=== PATIENT | female | born 1945 | race Caucasian/White ===

== ENCOUNTER → 2018-04-17 | Outpatient (CLI) | payer MEDICARE ==
--- NOTE | 2018-04-17 14:50 | BD ---
EXAMINATION TYPE: Axial Bone Density DATE OF EXAM: 04/17/2018 CLINICAL HISTORY: Postmenopausal female Height: 63 inches Weight: 140 Comparison: Prior DEXA bone scan June 12, 2013 FRAX RISK QUESTIONS: Alcohol (3 or more units per day): no Family History (Parent hip fracture): no Glucocorticoids (More than 3mos): no (Ex: prednisone, prednisolone, methylprednisolone, dexamethasone, and hydrocortisone). History of Fracture in Adulthood: yes; hip & wrist Secondary Osteoporosis: 1. Type 1 Diabetes: no 2. Hyperthyroidism: no 3. Menopause before 45: no 4. Malnutrition: no 5. Chronic liver disease: no Rheumatoid Arthritis: no Current Tobacco Use: no RISK FACTORS HISTORY OF: Hip Fracture (Right): yes When: 2002 History of Wrist Fracture: yes When: over 15 years ago Surgery to Hip(right): yes When: 2002 Family History of Osteoporosis: no Active: yes Diet low in dairy products/other sources of calcium: no Postmenopausal woman: yes Take estrogen and/or progesterone medications: not now How long: age [age] Lost more than 2 inches in height since high school: unsure, patient states may have been about 65 1/ 2 inches tall at one time Frequent falls: no Poor Health: no Hyperparathyroidism: no Adrenal Insufficiency: no MEDICATIONS: Prednisone or other steroids: no Thyroid Medications: no Osteoporosis Medications: no Additional Medications: vitamins Additional History: partial right hip replacement EXAM MEASUREMENTS: Bone mineral densitometry was performed using the [email or web address] System. Bone mineral density as measured about the Lumbar spine is: ----- L1-L4(G/cm2): 1.403 T Score Values are as follows: ----- L2: 1.6 ----- L3: 3.0 ----- L4: 2.5 ----- L1-L4: 1.9 Bone mineral density has: Increased 4.4% since study of: 06/12/2013 Bone mineral density about the L hip (g/cm2): 0.689 T Score values are as follows: -----L Neck: -2.5 -----L Total: -1.8 Bone mineral density has: Decreased -1.6% since study of: 06/12/2013 IMPRESSION: Osteopenia (T Score between -2.5 and -1) persists in the left hip. There remains slightly increased risk of fracture and the patient may be considered for treatment. Re-Screen 2-5 years. NOTE: T-SCORE=SD OF THE YOUNG ADULT MEAN.
--- NOTE | 2018-04-19 11:52 | MM ---
Reason for exam: screening (asymptomatic). Last mammogram was performed 2 years and 6 months ago. History: Patient is postmenopausal. Family history of breast cancer in 2 maternal aunts at age 67 and breast cancer in sister at age 62. Benign excisional biopsy of the left breast, December 13, 2002. Benign excisional biopsy of the left breast, December 13, 2002. Stereotactic core biopsy, December 06, 2002. Took estrogen for 3 years beginning at age 54. Physical Findings: A clinical breast exam by your physician is recommended on an annual basis and results should be correlated with mammographic findings. MG 3D Screening Mammo W/Cad Bilateral CC and MLO view(s) were taken. Prior study comparison: October 19, 2015, right breast MG 3d work up w/cad RT. October 06, 2015, bilateral MG 3d screening mammo w/cad. The breast tissue is heterogeneously dense. This may lower the sensitivity of mammography. New 6mm nodule posterior upper outer quadrant left breast warrants further evaluation. ASSESSMENT: Incomplete: need additional imaging evaluation, BI-RAD 0 RECOMMENDATION: Special view mammogram and ultrasound of the left breast. [facility] will attempt to contact patient to return for supplemental views and ultrasound.
== END | disposition home or self-care (01) ==
LOC: RADMAMWWP 13:05
PROVIDERS: ATTEND Internal Medicine
DX: Z12.31 Encounter for screening mammogram for malignant neoplasm of breast (principal); M85.852 Other specified disorders of bone density and structure, left thigh; Z78.0 Asymptomatic menopausal state; Z80.3 Family history of malignant neoplasm of breast
CPT/HCPCS: 77063; 77067; 77080

== ENCOUNTER → 2018-05-02 | Outpatient (CLI) | payer MEDICARE ==
--- NOTE | 2018-05-02 10:41 | MM ---
Reason for exam: additional evaluation requested from abnormal screening. Last mammogram was performed less than 1 month ago. History: Patient is postmenopausal. Family history of breast cancer in 2 maternal aunts at age 67 and breast cancer in sister at age 62. Benign excisional biopsy of the left breast, December 13, 2002. Benign excisional biopsy of the left breast, December 13, 2002. Stereotactic core biopsy, December 06, 2002. Took estrogen for 3 years beginning at age 54. Physical Findings: Nurse did not find any significant physical abnormalities on exam. MG 3D Work Up W/Cad LT Spot compression CC, spot compression MLO, and ML view(s) were taken of the left breast. Prior study comparison: April 17, 2018, bilateral MG 3d screening mammo w/cad. October 19, 2015, right breast MG 3d work up w/cad RT. The breast tissue is heterogeneously dense. This may lower the sensitivity of mammography. Finding: There is a persistent 9 mm circumscribed round mass located 6 cm from the nipple in the 1 o'clock upper outer quadrant, middle position of the left breast consistent with ultrasound findings. These results were verbally communicated with the patient and result sheet given to the patient on 05/02/18. ASSESSMENT: Suspicious, BI-RAD 4 RECOMMENDATION: Ultrasound core biopsy of the left breast. Called Dr. Razo with mammographic findings and has scheduled an appointment. Biopsy scheduled for 05/11/18 at 11:30. PRELIMINARY REPORT CALLED AND FAXED TO DR. RAZO ON 05/02/18.
--- NOTE | 2018-05-02 10:42 | USB ---
Reason for exam: additional evaluation requested from abnormal screening. History: Patient is postmenopausal. Family history of breast cancer in 2 maternal aunts at age 67 and breast cancer in sister at age 62. Benign excisional biopsy of the left breast, December 13, 2002. Benign excisional biopsy of the left breast, December 13, 2002. Stereotactic core biopsy, December 06, 2002. Took estrogen for 3 years beginning at age 54. US Breast Workup LT Left complete breast ultrasound includes all four quadrants, the retroareolar region and axilla. Finding demonstrates a 0.7 x 0.6 x 0.6cm hypoechoic lesion at 1 o'clock for which a biopsy is recommended, a 0.3 x 0.3 x 0.3cm cystic lesion at 3 o'clock and a 0.3 x 0.2 x 0.3cm hyperechoic lesion at the posterior nipple, area within duct, biopsy recommended. These results were verbally communicated with the patient and result sheet given to the patient on 05/02/18. ASSESSMENT: Suspicious, BI-RAD 4 RECOMMENDATION: Ultrasound core biopsy of the left breast. Called Dr. Razo with mammographic findings and has scheduled an appointment. Biopsy scheduled for 05/11/18 at 11:30. PRELIMINARY REPORT CALLED AND FAXED TO DR. RAZO ON 05/02/18.
== END | disposition home or self-care (01) ==
LOC: RADMAMWWP 08:21
PROVIDERS: ATTEND Internal Medicine
DX: R92.8 Other abnormal and inconclusive findings on diagnostic imaging of breast (principal)
CPT/HCPCS: 77065; 76641; G0279; 77061

== ENCOUNTER → 2018-05-08 | Day surgery (SDC) | payer MEDICARE ==
[2018-05-08 11:40] VITALS: PULSE 66; RESP 15; TEMP 98.8; BMI 24.0
--- NOTE | 2018-05-08 16:25 | USB ---
EXAMINATION TYPE: US biopsy breast VAD LT, US biopsy breast add'l VAD LT MG diagnostic mammo LT wo CAD DATE OF EXAM: 05/08/2018 CLINICAL HISTORY: 72-year-old female R92.8 Previous Abnormal Mammogram. TECHNIQUE: Ultrasound guided core biopsy of the left breast, 2 sites COMPARISON: 05/02/2018, 05/08/2018 FINDINGS: The procedure of ultrasound guided core biopsy was explained to the patient. Benefits, alternatives, and risks were discussed. An informed consent was then obtained. The patient was placed in supine positioning for imaging and for the procedure. The overlying skin was prepped and draped in usual sterile fashion. Lidocaine buffered with bicarbonate was used as anesthetic into the skin and subcutaneous tissue up to each area of concern in the left breast, in turn. SITE A: 1:00 solid mass - Under ultrasound guidance, a 13-gauge vacuum assisted Mammotome Elite biopsy gun device was used to obtain 7 core samples. Following this, a wing clip was left in lesion. SITE B: subtle subareolar lesion - Under ultrasound guidance, a 13-gauge vacuum assisted Mammotome Elite biopsy gun device was used to obtain 6 core samples. The lesion was largely obscured following placement of the biopsy needle. The site was extensively sampled. Following this, a coil clip was left in lesion. The patient tolerated the procedure well without any immediate complication. The patient was kept in the radiology department for short stay after the procedure and then discharged home in stable condition. Postbiopsy mammogram shows wing clip at the site of mammographic mass. Coil clip is present in the subareolar region. IMPRESSION: Successful, uncomplicated ultrasound guided two site core biopsy of the left breast, the 1:00 (SITE A) lesion being very suspicious. The subareolar lesion is equivocal between an intraductal lesion versus breast tissue interposed between branching ducts. Full pathology results to follow. Pathology Results: Malignant A. 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 See Surgical Pathology Cancer Case Summary. B. BREAST, LEFT, SITE B POST NIPPLE, CORE BIOPSY: Fibroadenoma/ fibroadenomatoid hyperplasia with stromal hyalinization and background fibrocystic changes with rare microcalcifications. Recommendation Surgical consult of the left breast. Site A: 1 o'clock, surgical consult. Site B: posterior nipple, benign, appropriate follow up post surgical intervention. MTDD
[2018-05-08 17:56] VITALS: BP 134/78
== END | disposition home or self-care (01) ==
LOC: RADUSWWP 11:17
PROVIDERS: ATTEND Internal Medicine
DX: C50.912 Malignant neoplasm of unspecified site of left female breast (principal); D24.2 Benign neoplasm of left breast; R92.8 Other abnormal and inconclusive findings on diagnostic imaging of breast
CPT/HCPCS: 88305; 77065; 19083; 19084; A4648; J2001

== ENCOUNTER → 2018-06-08 | Day surgery (SDC) | payer MEDICARE ==
[2018-06-01 15:55] VITALS: BMI 24.0
[~2018-06-08] MED LIST: ALPRAZolam 0.25 MG TAB PO ONE; DEXAMETHASONE SOD PHOSPHATE 10 MG/ML 1 ML VIAL IV ONE; HEPARIN SODIUM,PORCINE 5,000 UNIT/ML 1 ML VIAL SQ ONE; KETOROLAC 30 MG/ML 1 ML VIAL ONE; LACTATED RINGERS 1,000 ML IV ONE; LACTATED RINGERS 1,000 ML IV SCH; LIDOCAINE 1% 20 ML VIAL (10MG/ML) FOR IV START INTRADERMA ONE; LIDOCAINE 1% INJ 10MG/ML (20 ML MDV) ONE; LIDOCAINE 1% INJ 10MG/ML (20 ML MDV) SQ ONE; MIDAZOLAM 2 MG/2 ML VIAL IV PRN; MIDAZOLAM 2 MG/2 ML VIAL ONE; NALOXONE 0.4 MG/ML 1 ML VIAL IV PRN; ONDANSETRON 4 MG/2 ML VIAL IVP ONE; PROPOFOL 10 MG/ML 20 ML VIAL IV ONE; Pre Op ABX Message 1 EACH MISC MISCELLANE ONE; SODIUM BICARB 4% 5 ML VIAL (0.48 MEQ/ML) MISCELLANE ONE; fentaNYL (PF) 50 MCG/ML 2 ML AMP IV PRN; fentaNYL (PF) 50 MCG/ML 2 ML AMP ONE; traMADol 50 MG TAB PO ONE; traMADol 50 MG TAB PO PRN
--- NOTE | 2018-06-08 09:46 | NM ---
EXAMINATION TYPE: NM sentinel node injection DATE OF EXAM: 06/08/2018 COMPARISON: 05/08/2018 HISTORY: 72 year-old female with biopsy-proven left breast cancer TECHNIQUE AND FINDINGS: The procedure of sentinel lymph node injection was explained to the patient. The benefits, alternatives, and risks were discussed. An informed consent was then obtained. Overlying skin is cleaned with sterile alcohol. 517 uCi technetium 99m Tilmanocept was injected at a single site, upper outer margin of the left nipple intradermally. The patient tolerated the procedure well without any immediate complication. The patient was kept in the radiology department for short stay after the procedure and then taken to surgery for surgical p rocedure what is presumed intraoperative gamma probe will be used for sentinel lymph node detection. IMPRESSION: Left breast radiotracer injection for sentinel node localization as above.
[2018-06-08 10:56] VITALS: TEMP 96.8
--- NOTE | 2018-06-08 11:07 | P.OP ---
Date of Procedure: 06/08/18 Procedure(s) Performed: PREOPERATIVE DIAGNOSIS: Left breast cancer POSTOPERATIVE DIAGNOSIS: Same PROCEDURE: Left Breast wire localization lumpectomy with sentinel lymph node biopsy SURGEON: Hossein EBL: Minimal ANESTHESIA: General COMPLICATIONS: None OPERATIVE PROCEDURE: Patient was placed on the operating room table in the supine position. 2 mL of methylene blue was injected into the subareolar space. The breast was then massaged for 5 minutes. The left breast was then prepped and draped in usual sterile fashion. The left axilla was addressed at that time. The hot spot in the left axilla was identified. A small curvilinear incision was made using the scalpel. Dissection down through the subcutaneous tissues took place using electrocautery. Using the neoprobe I identified a total of 3 sentinel lymph nodes. These were all removed and sent to pathology for close examination. Frozen sections from these lymph nodes were negative for metastatic disease. No bleeding was seen. The subcutaneous tissues were closed using 3-0 Vicryl sutures. The skin was closed using 4-0 Monocryl sutures. The wire entrance site was then addressed. This was present at the 3:00 location. A curvilinear incision was made adjacent to the wire entrance site. I followed the wire down into the breast tissue. An adequate lumpectomy specimen then took place around the wire. Margins of 1.5-2 cm worth attempted to be achieved. The initial lumpectomy specimen was then painted using the appropriate color. The clip assembler small products was used to linda the lumpectomy site circumferentially. The clip was confirmed to be within the lumpectomy specimen by radiology. The subcutaneous tissues were closed using 3-0 Vicryl sutures. The skin was closed using a running 4-0 Monocryl stitch. Steri- Strips and sterile dressings were applied. DISPOSITION: Stable to recovery room
[2018-06-08 12:08] VITALS: RESP 18
[2018-06-08 12:59] VITALS: BP 135/87; PULSE 75
--- NOTE | 2018-06-08 14:51 | MM ---
EXAMINATION TYPE: MG pre op needle loc LT, MG surgical specimen LT DATE OF EXAM: 06/08/2018 COMPARISON: 05/02/2018 CLINICAL HISTORY: 72 year-old female with biopsy-proven left breast cancer TECHNIQUE: Needle localization with wire placement and surgical excision of area of concern in the le ft breast. FINDINGS: The procedure of needle localization with wire placement and than surgical excision was exp lained to the patient. Benefits, alternatives, and risks were discussed. An informed consent was th en obtained. The shortest pathway for procedure was chosen. Shortest pathway was a lateral approach. The overlyin g skin was prepped and draped in usual sterile fashion. Lidocaine buffered with bicarbonate was used as anesthetic into the skin and subcutaneous tissue up to the level of area of concern. A 7 cm need le was used. It was placed via a lateral approach under mammographic guidance. Subsequent 90 degree s mammogram show the needle to be in satisfactory position relative to the targeted area. At this po int, wire was placed and the needle was withdrawn. The wire was fixed to patient's skin. Images wer e marked for surgeon. The patient tolerated the procedure well without any immediate complication. The patient was kept in the radiology department for short stay after the procedure and then taken to surgery for surgical e xcision. The biopsy clip with associated mass and wire are identified in specimen mammogram. The patient was kept in hospital for short stay after the procedure and then discharged home in stabl e condition. IMPRESSION: Successful, uncomplicated needle localization with wire placement and surgical excision of biopsy-pro paulina left breast cancer; full pathology results to follow.
== END ==
LOC: OR 06:12
PROVIDERS: ATTEND Surgery
DX: C50.412 Malignant neoplasm of upper-outer quadrant of left female breast (principal); N62 Hypertrophy of breast; Z17.0 Estrogen receptor positive status [ER+]; Z80.3 Family history of malignant neoplasm of breast; Z79.899 Other long term (current) drug therapy; Z96.649 Presence of unspecified artificial hip joint
CPT/HCPCS: 76098; 19281; 38792; 19301; 38525; A9520; J2250; J1644; J1100; J2405; J2001; J3010; J1885; J2704; 88307; 88331; 88341; 88342

== ENCOUNTER → 2019-03-05 | Outpatient (CLI) | payer MEDICARE ==
[2019-03-05 13:45] VITALS: BP 144/90; PULSE 81; RESP 18; TEMP 98.7; BMI 23.1
--- NOTE | 2019-03-05 14:51 | P.HPOB ---
History of Present Illness H&P Date: 03/05/19 Chief Complaint: The patient is here for her routine gynecologic exam. This is a 73-year-old with an LMP of 1994. The patient is here to establish with this office. She states it has been about 4 years since her last pelvic exam. She denies any postmenopausal bleeding. She has noticed very small reddish spots on the labia near the vaginal opening these of been there for more than 5 years. She is otherwise without complaints. Review of Systems Weight has been stable. She denies respiratory, cardiac and G.I. problems. She denies maltreatment or problems with falling. : she denies any significant problems with urinary leakage, but occasionally has to go to the bathroom right away. Past Medical History Past Medical History: Cancer Additional Past Medical History / Comment(s): LT BREAST CA status post lumpectomy and radiation treatment in 2018. 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 PAST [employer] HISTORY: She has no history of STDs. History of Any Multi-Drug Resistant Organisms: None Reported Past Surgical History: Breast Surgery, Joint Replacement, Tonsillectomy Additional Past Surgical History / Comment(s): Partial RT Hip Replacement 2002. Left breast biopsy and lumpectomy 2017. Cataract surgery. COLONOSCOPY 2011. Uterine myomectomy. Past Anesthesia/Blood Transfusion Reactions: No Reported Reaction Past Psychological History: Anxiety, Depression Additional Psychological History / Comment(s): Takes Xanax 0.25 prn Smoking Status: Never smoker Past Alcohol Use History: Occasional (0-6 per month) Past Drug Use History: None Reported Additional History: She has been since 1962 and is infrequently sexually active. 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 - Past Family History Sister(s) Family Medical History: Cancer Additional Family Medical History / Comment(s): BREAST CA. Father Family Medical History: Cancer Additional Family Medical History / Comment(s): Throat cancer. Mother Additional Family Medical History / Comment(s): Heart valve replacement. 2 maternal aunts had breast cancer. Medications and Allergies Home Medications Medication Instructions Recorded Confirmed Type ALPRAZolam [Xanax] 0.125 mg PO BID PRN 05/04/18 03/05/19 History Cholecalciferol (Vitamin D3) 2,000 unit PO DAILY 05/04/18 03/05/19 History [Vitamin D3] Cyanocobalamin (Vitamin B-12) 1,000 mcg PO DAILY 05/04/18 03/05/19 History [Vitamin B-12] Docusate [Colace] 100 mg PO DAILY 05/04/18 03/05/19 History Multivit-Min/Iron/Folic/Lutein 1 each PO DAILY 05/04/18 03/05/19 History [Centrum Silver Women Tablet] Letrozole [Femara] 2.5 mg PO DAILY 03/05/19 03/05/19 History Allergies Allergy/AdvReac Type Severity Reaction Status Date / Time No Known Allergies Allergy Verified 03/05/19 13:48 Exam Vital Signs Temp Pulse Resp BP Pulse Ox 03/05/19 13:37 98.7 F 81 18 144/90 97 Intake and Output 03/04/19 03/05/19 03/05/19 22:59 06:59 14:59 Other: Weight 63.049 kg Height 5'5", weight 139 pounds, BMI 23.1. This is a well-developed well-nourished white female who is alert and oriented times 3 in no acute distress. HEENT: Within normal limits. NECK: Supple without mass or thyromegaly. CHEST AND LUNGS: Clear to auscultation. HEART: Regular rate and rhythm. BREASTS: Are without mass or discharge. There is a small dimpled area at the 1 o'clock position of the left breast consistent with her previous lumpectomy. AXILLARY EXAM: Negative for adenopathy. BACK: Negative for CVA tenderness. ABDOMEN: Soft, nontender, without palpable masses. PELVIC EXAM: Normal external genitalia with moderate atrophy. There are several small benign appearing 1 mm reddish capillary spots bilaterally. Cervix and vagina appear normal with moderate atrophy. There is no unusual discharge. There is no evidence of prolapse. The uterus is midposition, nongravid size and nontender. There are no palpable adnexal masses or tenderness. RECTAL EXAM: rectovaginal exam is negative for mass or tenderness and is negative for occult blood. EXTREMITIES: Nontender. IMPRESSION: 1. 73-year-old menopausal female with benign gynecologic exam. 2. The small benign appearing capillary spots on the vulva have been there for many years and are very benign in appearance. 3. History of left breast cancer with no evidence of recurrence. 4. 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 PLAN: 1. Pap smear was performed. I will try to obtain records of her previous Pap smears. If she has been adequately screened and no history of significant dysplasia, we will consider discontinuing Pap smears because of her low risk nature. 2. Self breast awareness was discussed with the patient. 3. Mammograms will be done through her surgeon and oncologists. She is scheduled for one in April of this year. 4. Osteoporosis handout was given to the patient. I have stressed the importan ce of adequate calcium, vitamin D and regular exercise. Recommended amounts of calcium and vitamin D were also discussed. Her last bone density test was done on 04/17/2018 and showed osteopenia. Will plan on repeating this in approximately 2 years 5. She does receive flu shots in the fall. 6. We have discussed the benign appearing spots on the vulva. I've tried to reassure her that nothing further needs to be done unless she is noticing changes. 7. She will return in one to 2 years for her routine well woman exams.
== END | disposition home or self-care (01) ==
LOC: WWCWWP 13:17
PROVIDERS: ATTEND Obstetrics & Gynecology
DX: Z53.9 Procedure and treatment not carried out, unspecified reason (principal)

== ENCOUNTER → 2019-04-22 | Outpatient (CLI) | payer MEDICARE ==
--- NOTE | 2019-04-22 12:11 | MM ---
Reason for exam: additional evaluation requested from prior study. Last mammogram was performed 11 months ago. History: Patient is postmenopausal and has history of breast cancer at age 72. Family history of breast cancer in 2 maternal aunts at age 67 and breast cancer in sister at age 62. Malignant MG pre op needle loc LT of the left breast, June 08, 2018. Lumpectomy of the left breast, June 08, 2018. Malignant US biopsy breast VAD LT of the left breast, May 08, 2018. Malignant US biopsy breast add'l VAD LT of the left breast, May 08, 2018. Radiation therapy of the left breast, 2018. Benign excisional biopsy of the left breast, December 13, 2002. Benign excisional biopsy of the left breast, December 13, 2002. Stereotactic core biopsy, December 06, 2002. Took estrogen for 3 years beginning at age 54. Physical Findings: Nurse did not find any significant physical abnormalities on exam. MG 3D Diag Mammo W/Cad HEYDI Bilateral CC and MLO view(s) were taken. Prior study comparison: May 08, 2018, left breast MG diagnostic mammo LT wo CAD. May 02, 2018, left breast MG 3d work up w/cad LT. The breast tissue is heterogeneously dense. This may lower the sensitivity of mammography. Post surgical change in the left breast. Benign appearing calcifications in the left breast. There is skin thickening on left. These results were verbally communicated with the patient and result sheet given to the patient on 04/22/19. ASSESSMENT: Benign, BI-RAD 2 RECOMMENDATION: Follow-up diagnostic mammogram of both breasts in 1 year.
== END | disposition home or self-care (01) ==
LOC: RADMAMWWP 11:03
PROVIDERS: ATTEND Surgery
DX: R92.8 Other abnormal and inconclusive findings on diagnostic imaging of breast (principal)
CPT/HCPCS: 77066; G0279; 77062

== ENCOUNTER → 2020-06-08 | Outpatient (CLI) | payer MEDICARE ==
--- NOTE | 2020-06-08 14:18 | MM ---
Reason for exam: additional evaluation requested from prior study. Last mammogram was performed 1 year and 2 months ago. History: Patient is postmenopausal and has history of breast cancer at age 72. Family history of breast cancer in 2 maternal aunts at age 67 and breast cancer in sister at age 62. Malignant MG pre op needle loc LT of the left breast, June 08, 2018. Lumpectomy of the left breast, June 08, 2018. Malignant US biopsy breast VAD LT of the left breast, May 08, 2018. Malignant US biopsy breast add'l VAD LT of the left breast, May 08, 2018. Radiation therapy of the left breast, 2018. Benign excisional biopsy of the left breast, December 13, 2002. Benign excisional biopsy of the left breast, December 13, 2002. Stereotactic core biopsy, December 06, 2002. Took estrogen for 3 years beginning at age 54. Taking antineoplastic beginning at age 72. Physical Findings: Nurse did not find any significant physical abnormalities on exam. MG 3D Diag Mammo W/Cad HEYDI Bilateral CC and MLO view(s) were taken. Prior study comparison: April 22, 2019, bilateral MG 3d diag mammo w/cad HEYDI. May 08, 2018, left breast MG diagnostic mammo LT wo CAD. The breast tissue is heterogeneously dense. This may lower the sensitivity of mammography. Post surgical changes left breast. No significant new findings when compared with previous films. These results were verbally communicated with the patient and result sheet given to the patient on 06/08/20. ASSESSMENT: Benign, BI-RAD 2 RECOMMENDATION: Follow-up diagnostic mammogram of both breasts in 1 year.
--- NOTE | 2020-06-08 17:07 | BD ---
EXAMINATION TYPE: Axial Bone Density DATE OF EXAM: 06/08/2020 COMPARISON: NONE CLINICAL HISTORY: Height: 63.5 Weight: 138.3 FRAX RISK QUESTIONS: Alcohol (3 or more units per day): no Family History (Parent hip fracture): no Glucocorticoids (More than 3mos): no (Ex: prednisone, prednisolone, methylprednisolone, dexamethasone, and hydrocortisone). History of Fracture in Adulthood: yes Secondary Osteoporosis: 1. Type 1 Diabetes: no 2. Hyperthyroidism: no 3. Menopause before 45: no 4. Malnutrition: no 5. Chronic liver disease: no Rheumatoid Arthritis: no Current Tobacco Use: no RISK FACTORS HISTORY OF: Hip Fracture (Right/Left): right When: 2002 Surgery to Spine/Hip(right/left)/Wrist (right/left): right hip When: 2002 Family History of Osteoporosis: no Active: yes Diet low in dairy products/other sources of calcium: no Postmenopausal woman: age 53 Lost more than 2 inches in height since high school: yes MEDICATIONS: letrozole Additional History: EXAM MEASUREMENTS: Bone mineral densitometry was performed using the [employer]. Bone mineral density as measured about the Lumbar spine is: ----- L1-L4(G/cm2): 1.418 T Score Values are as follows: ----- L2: 2.3 ----- L3: 2.3 ----- L4: 2.1 ----- L1-L4: 2.0 Bone mineral density has: decreased -0.7 % since study of: 04.17.2018 Bone mineral density about the L hip (g/cm2): 0.771 T Score values are as follows: -----L Neck: -2.6 -----L Total: -1.9 Bone mineral density has: decreased -0.9 % since study of: 04.17.2018 IMPRESSION: Osteoporosis (T Score less than -2.5). There is increased fracture risk and therapy is usually indicated based on age. Re-Screen 1-2 years. NOTE: T-SCORE=SD OF THE YOUNG ADULT MEAN.
== END | disposition home or self-care (01) ==
LOC: RADMAMWWP 13:38
PROVIDERS: ATTEND Internal Medicine Hematology & Oncology
DX: Z08 Encounter for follow-up examination after completed treatment for malignant neoplasm (principal); Z85.3 Personal history of malignant neoplasm of breast; M89.9 Disorder of bone, unspecified; N95.1 Menopausal and female climacteric states; M81.0 Age-related osteoporosis without current pathological fracture
CPT/HCPCS: 77080; 77066; G0279; 77062

== ENCOUNTER → 2021-04-29 | Outpatient (CLI) | payer MEDICARE ==
--- NOTE | 2021-04-29 12:39 | XR ---
EXAMINATION TYPE: XR lumbar spine 2 or 3V DATE OF EXAM: 04/29/2021 CLINICAL HISTORY: Back pain TECHNIQUE: 3 views of the lumbar spine are obtained. COMPARISON: None FINDINGS: Vertebral body heights are preserved. There is accentuation of the normal lumbar lordosis. There is mild retrolisthesis of T12 on L1 and L1 on L2 and L2 on L3. Multilevel endplate sclerosis an d osteophytosis is noted with facet arthropathy. Vascular calcifications are seen. 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
== END | disposition home or self-care (01) ==
LOC: RADXRMAIN 10:06
PROVIDERS: ATTEND Internal Medicine
DX: M51.86 Other intervertebral disc disorders, lumbar region (principal); M47.816 Spondylosis without myelopathy or radiculopathy, lumbar region
CPT/HCPCS: 72100

== ENCOUNTER → 2021-06-25 | Outpatient (CLI) | payer MEDICARE ==
--- NOTE | 2021-06-28 08:41 | MM ---
Reason for exam: additional evaluation requested from prior study. Last mammogram was performed 1 year and 1 month ago. History: Patient is postmenopausal and has history of breast cancer at age 72. Family history of breast cancer in 2 maternal aunts at age 67 and breast cancer in sister at age 62. Malignant MG pre op needle loc LT of the left breast, June 08, 2018. Lumpectomy of the left breast, June 08, 2018. Malignant US biopsy breast VAD LT of the left breast, May 08, 2018. Malignant US biopsy breast add'l VAD LT of the left breast, May 08, 2018. Radiation therapy of the left breast, 2018. Benign excisional biopsy of the left breast, December 13, 2002. Benign excisional biopsy of the left breast, December 13, 2002. Stereotactic core biopsy, December 06, 2002. Took estrogen for 3 years beginning at age 54. Taking antineoplastic for 3 years beginning at age 72. Physical Findings: Nurse did not find any significant physical abnormalities on exam. MG 3D Diag Mammo W/Cad HEYDI Bilateral CC and MLO view(s) were taken. Prior study comparison: June 08, 2020, bilateral MG 3d diag mammo w/cad HEYDI. April 22, 2019, bilateral MG 3d diag mammo w/cad HEYDI. The breast tissue is heterogeneously dense. This may lower the sensitivity of mammography. Benign appearing bilateral calcifications. Previous mammotome biopsy in the left breast. Post operative changes. These results were verbally communicated with the patient and result sheet given to the patient on 06/25/21. ASSESSMENT: Benign, BI-RAD 2 RECOMMENDATION: Follow-up diagnostic mammogram of both breasts in 1 year.
== END | disposition home or self-care (01) ==
LOC: RADMAMWWP 14:47
PROVIDERS: ATTEND Internal Medicine Hematology & Oncology
DX: R92.8 Other abnormal and inconclusive findings on diagnostic imaging of breast (principal); Z85.3 Personal history of malignant neoplasm of breast
CPT/HCPCS: 77066; G0279; 77062

== ENCOUNTER 2021-07-06 18:22 | Inpatient (IN) | payer MEDICARE ==
--- NOTE | 2021-07-06 18:26 | ED ---
General Adult HPI - General Stated complaint: Fall, LT hip pain Time Seen by Provider: 07/06/21 18:22 Source: patient, EMS, RN notes reviewed, old records reviewed - History of Present Illness Initial comments: This is a 75-year-old female who states she was walking down a couple steps and she missed one step and fell and hurt her left hip. Patient states she was unable to get up when EMS arrived they stated her leg was shortened and externally rotated. Patient denies hitting her head or neck. Patient denies any upper extremity pain. Patient denies any right lower extremity pain. Patient denies any chest pain back pain or abdominal pain. Patient has no other complaints besides the left hip pain. Patient denies any blood thinners. Patient received a total of [address] the [address] in - Related Data Home Medications Medication Instructions Recorded Confirmed ALPRAZolam [Xanax] 0.125 mg PO BID PRN 05/04/18 03/05/19 Cholecalciferol (Vitamin D3) 2,000 unit PO DAILY 05/04/18 03/05/19 [Vitamin D3] Cyanocobalamin (Vitamin B-12) 1,000 mcg PO DAILY 05/04/18 03/05/19 [Vitamin B-12] Docusate [Colace] 100 mg PO DAILY 05/04/18 03/05/19 Multivit-Min/Iron/Folic/Lutein 1 each PO DAILY 05/04/18 03/05/19 [Centrum Silver Women Tablet] Letrozole [Femara] 2.5 mg PO DAILY 03/05/19 03/05/19 Allergies Allergy/AdvReac Type Severity Reaction Status Date / Time No Known Allergies Allergy Verified 07/06/21 18:29 Review of Systems ROS Statement: Those systems with pertinent positive or pertinent negative responses have been documented in the HPI. ROS Other: All systems not noted in ROS Statement are negative. Past Medical History Past Medical History: Cancer Additional Past Medical History / Comment(s): LT BREAST CA status post lumpectomy and radiation treatment in 2018. 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 History of Any Multi-Drug Resistant Organisms: None Reported Past Surgical History: Breast Surgery, Joint Replacement, Tonsillectomy Additional Past Surgical History / Comment(s): Partial RT Hip Replacement 2002. Left breast biopsy and lumpectomy 2018. Cataract surgery. COLONOSCOPY 2012. Uterine myomectomy. Past Anesthesia/Blood Transfusion Reactions: No Reported Reaction Past Psychological History: Anxiety, Depression Additional Psychological History / Comment(s): Takes Xanax 0.25 prn Past Alcohol Use History: Occasional (0-6 per month) Past Drug Use History: None Reported - Past Family History Sister(s) Family Medical History: Cancer Additional Family Medical History / Comment(s): BREAST CA. Father Family Medical History: Cancer Additional Family Medical History / Comment(s): Throat cancer. Mother Additional Family Medical History / Comment(s): Heart valve replacement. 2 maternal aunts had breast cancer. General Exam - General Exam Comments Initial Comments: GENERAL: Patient is well-developed and well-nourished. Patient is nontoxic and well- hydrated and is in mild distress. ENT: Neck is soft and supple. No significant lymphadenopathy is noted. Oropharynx is clear. Moist mucous membranes. Neck has full range of motion without eliciting any pain. There is no thyroid enlargement and no masses were felt. EYES: The sclera were anicteric and conjunctiva were pink and moist. Extraocular movements were intact and pupils were equal round and reactive to light. Eyelids were unremarkable. PULMONARY: Unlabored respirations. Good breath sounds bilaterally. No audible rales rhonc hi or wheezing was noted. CARDIOVASCULAR: There is a regular rate and rhythm without any murmurs gallops or rubs. ABDOMEN: Soft and nontender with normal bowel sounds. SKIN: Skin is clear with no lesions or rashes and otherwise unremarkable. NEUROLOGIC: Patient is alert and oriented x3. Cranial nerves II through XII are grossly intact. Motor and sensory are also intact. Normal speech, volume and content. Symmetrical smile. MUSCULOSKELETAL: Patient has significant pain in the lateral aspect of her left hip. Patient's leg is shortened and externally rotated. LYMPHATICS: No significant lymphadenopathy is noted PSYCHIATRIC: Normal psychiatric evaluation. Course Vital Signs 07/06/21 18:23 Temperature 99.2 F Pulse Rate 86 Respiratory 18 Rate Blood Pressure 168/90 O2 Sat by Pulse 96 Oximetry Medical Decision Making - Medical Decision Making EKG shows normal sinus rhythm at [address] interval 170 QRS is 98 QT interval 390 QTC is 460. Patient's EKG shows no ST segment elevation or depression. X-ray of the hip shows a subcapital impacted femoral neck fracture on the left. I spoke to Dr. Cortez who agreed to admit the patient admitted the patient wrote a minute orders. - Lab Data Result diagrams: 07/06/21 18:36 07/06/21 18:36 Lab Results 07/06/21 07/06/21 07/06/21 Range/Units 18:36 18:36 18:36 WBC 6.4 (3.8-10.6) k/uL RBC 4.44 (3.80-5.40) m/uL Hgb 13.8 (11.4-16.0) gm/dL Hct 41.7 (34.0-46.0) % MCV 93.8 (80.0-100.0) fL MCH 31.0 (25.0-35.0) pg MCHC 33.1 (31.0-37.0) g/dL RDW 12.0 (11.5-15.5) % Plt Count 218 (150-450) k/uL MPV 7.1 Neutrophils % 56 % Lymphocytes % 33 % Monocytes % 6 % Eosinophils % 3 % Basophils % 0 % Neutrophils # 3.6 (1.3-7.7) k/uL Lymphocytes # 2.1 (1.0-4.8) k/uL Monocytes # 0.4 (0-1.0) k/uL Eosinophils # 0.2 (0-0.7) k/uL Basophils # 0.0 (0-0.2) k/uL PT 9.8 (9.0-12.0) sec INR 0.9 (<1.2) APTT 20.2 L (22.0-30.0) sec Sodium 138 (137-145) mmol/L Potassium 4.1 (3.5-5.1) mmol/L Chloride 108 H (98-107) mmol/L Carbon Dioxide 25 (22-30) mmol/L Anion Gap 5 mmol/L BUN 16 (7-17) mg/dL Creatinine 0.63 (0.52-1.04) mg/dL Est GFR (CKD-EPI)AfAm >90 (>60 ml/min/1.73 sqM) Est GFR (CKD-EPI)NonAf 87 (>60 ml/min/1.73 sqM) Glucose 112 H (74-99) mg/dL Calcium 9.2 (8.4-10.2) mg/dL Total Bilirubin 0.3 (0.2-1.3) mg/dL AST 27 (14-36) U/L ALT 8 (4-34) U/L Alkaline Phosphatase 74 (38-126) U/L Total Protein 6.1 L (6.3-8.2) g/dL Albumin 3.8 (3.5-5.0) g/dL Disposition Clinical Impression: Subcapital fracture of left femur Disposition: ADMITTED IP TO THIS [facility] Referrals: Darwin Mcdonald MD [Primary Care Provider] - 1-2 days Time of Disposition: 19:19
[2021-07-06 18:43] LABS: Basophils % (A) 0 %; Eosinophils # (A) 0.2 k/uL (0-0.7); Eosinophils % (A) 3 %; HCT 41.7 % (34.0-46.0); HGB 13.8 gm/dL (11.4-16.0); Lymphocytes # (A) 2.1 k/uL (1.0-4.8); Lymphocytes % (A) 33 %; MCHC 33.1 g/dL (31.0-37.0); MCV 93.8 fL (80.0-100.0); Mean Platelet Volume 7.1; Monocytes # (A) 0.4 k/uL (0-1.0); Monocytes % (A) 6 %; Neutrophils # (A) 3.6 k/uL (1.3-7.7); Neutrophils % (A) 56 %; Platelet Count 218 k/uL (150-450); RBC 4.44 m/uL (3.80-5.40); WBC 6.4 k/uL (3.8-10.6)
[2021-07-06 18:58] LABS: INR 0.9 (<1.2); Partial Thromboplastin Time 20.2 sec (22.0-30.0); Prothrombin Time 9.8 sec (9.0-12.0)
[2021-07-06 19:02] LABS: ALT 8 U/L (4-34); AST 27 U/L (14-36); African American GFR (CKD) >90 (>60 ml/min/1.73 sqM); Albumin 3.8 g/dL (3.5-5.0); Alkaline Phosphatase 74 U/L (38-126); Anion Gap 5 mmol/L; Blood Urea Nitrogen 16 mg/dL (7-17); Calcium 9.2 mg/dL (8.4-10.2); Carbon Dioxide 25 mmol/L (22-30); Chloride 108 mmol/L (98-107); Glucose 112 mg/dL (74-99); Non-African American GFR(CKD) 87 (>60 ml/min/1.73 sqM); Potassium 4.1 mmol/L (3.5-5.1); Sodium 138 mmol/L (137-145); Total Bilirubin 0.3 mg/dL (0.2-1.3); Total Protein 6.1 g/dL (6.3-8.2)
--- NOTE | 2021-07-06 19:13 | XR ---
EXAMINATION TYPE: XR chest 1V DATE OF EXAM: 07/06/2021 COMPARISON: NONE HISTORY: There is only breathing TECHNIQUE: Single view FINDINGS: Heart and mediastinum are normal. Lungs are clear. Diaphragm is normal. Bony thorax is inta ct. IMPRESSION: No active cardiopulmonary disease. Normal heart.
--- NOTE | 2021-07-06 19:14 | XR ---
EXAMINATION TYPE: XR Hip LT and AP Pelvis DATE OF EXAM: 07/06/2021 COMPARISON: NONE HISTORY: Fall. Pain TECHNIQUE: 3 views FINDINGS: There is impacted subcapital fracture left femur. There is no dislocation. There is 2.5 cm of displacement. Pelvic ring is intact. There is right hip prosthesis. IMPRESSION: Acute impacted subcapital fracture left femur.
--- NOTE | 2021-07-06 19:15 | XR ---
EXAMINATION TYPE: XR femur LT DATE OF EXAM: 07/06/2021 COMPARISON: NONE HISTORY: Fall. Pain TECHNIQUE: 4 views FINDINGS: There is an acute impacted subcapital fracture left femur. The distal femur is intact. Knee joint is intact. IMPRESSION: Acute subcapital impacted left femoral neck fracture.
[2021-07-06] MEDS ORDERED: SODIUM CHLORIDE 0.9% 1,000 ML IV ONE (19:19)
[2021-07-06] MEDS: HYDROmorphone 0.5 MG/0.5 ML SYRINGE IVP PRN (21:38)
[2021-07-07] MEDS: HYDROmorphone 0.5 MG/0.5 ML SYRINGE IVP PRN (05:31)
--- NOTE | 2021-07-07 08:46 | P.HPOR ---
History of Present Illness H&P Date: 07/07/21 Chief Complaint: Left hip pain Patient was seen at bedside this morning. Patient was lying supine in bed with left leg shortened and externally rotated. Patient states yesterday she was walking down stairs at home tripped and fell on the last couple steps and landed on her left hip. Patient says she was immediately in significant pain and was unable to walk. Patient states the pain is mostly on the outside of her hip. Patient says she does not have any radiation of pain down the leg. Patient also mentions she does have some low back pain. Patient denies any saddle anesthesia. Patient denies any loss of bowel/bladder control. Patient says she previously had a right total hip arthroplasty performed [address] Reece. Patient says she is not taking any blood thinners. Patient denies any previous cardiac history. Patient has chest pain, fever, shortness breath, nausea, vomiting, change in vision. Past Medical History Past Medical History: Cancer Additional Past Medical History / Comment(s): LT BREAST CA status post lumpectomy and radiation treatment in 2018. 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 History of Any Multi-Drug Resistant Organisms: None Reported Past Surgical History: Breast Surgery, Joint Replacement, Tonsillectomy Additional Past Surgical History / Comment(s): Partial RT Hip Replacement 2002. Left breast biopsy and lumpectomy 2017. Cataract surgery. COLONOSCOPY 2011. Uterine myomectomy. Past Anesthesia/Blood Transfusion Reactions: No Reported Reaction Past Psychological History: Anxiety, Depression Additional Psychological History / Comment(s): Takes Xanax 0.25 prn Smoking Status: Never smoker Past Alcohol Use History: Occasional Past Drug Use History: None Reported - Past Family History Sister(s) Family Medical History: Cancer Additional Family Medical History / Comment(s): BREAST CA. Father Family Medical History: Cancer Additional Family Medical History / Comment(s): Throat cancer. Mother Additional Family Medical History / Comment(s): Heart valve replacement. 2 maternal aunts had breast cancer. Medications and Allergies Home Medications Medication Instructions Recorded Confirmed Type ALPRAZolam [Xanax] 0.125 mg PO DAILY PRN 05/04/18 07/06/21 History Multivit-Min/Iron/Folic/Lutein 1 each PO HS 05/04/18 07/06/21 History [Centrum Silver Women Tablet] Letrozole [Femara] 2.5 mg PO HS 03/05/19 07/06/21 History Geovany/D3/Mag11/Zinc/Business Process Expert/Nito/Bor 1 tab PO DAILY 07/06/21 07/06/21 History [Caltrate 600+D Plus Tablet] Allergies Allergy/AdvReac Type Severity Reaction Status Date / Time No Known Allergies Allergy Verified 07/06/21 20:24 Physical Examination Inspection: Shortening and external rotation of left leg. No evidence of open fractures. Negative for any ecchymosis. Negative for any significant discoloration other than as noted. Negative for nodules, erythema. Sensation: Sensation is intact in bilateral upper extremities symmetric, equal in distribution. Sensation is intact in bilateral lower extremities symmetric, equal in distribution Palpation: Significant tenderness to palpation over the proximal left femur laterally. Nontender to palpation throughout rest of exam Range of motion: Limited range of motion in the left leg due to patient being in significant pain. Decreased hip flexion in left leg. Bilateral upper extremities full range of motion in elbow extension/flexion as well as shoulder internal and external rotation abduction and forward elevation. Right lower extremity full range of motion and knee flexion extension and hip flexion extension. 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 Right lower extremity 5/5 in resisted flexion extension and hip flexion extension. Left leg exam limited due to patient being in significant amount of pain Neurovascular status/tensioning signs: Refill under 3 seconds bilaterally in lower and upper extremities. Skin mildly warm to touch in hands bilaterally as well as bilaterally in the lower extremities. Dorsalis pedis pulses intact, 2+ bilaterally. Radial pulses intact, 2+ bilaterally. Negative Homans bilaterally. Negative Naomi's bilaterally. Negative clonus upon dorsiflexing feet bilaterally. Results - Labs Labs: Abnormal Lab Results - Last 24 Hours (Table) 07/06/21 07/06/21 Range/Units 18:36 18:36 APTT 20.2 L (22.0-30.0) sec Chloride 108 H (98-107) mmol/L Glucose 112 H (74-99) mg/dL Total Protein 6.1 L (6.3-8.2) g/dL H & H 07/06/21 Range/Units 18:36 Hgb 13.8 (11.4-16.0) gm/dL Hct 41.7 (34.0-46.0) % Coagulation 07/06/21 Range/Units 18:36 INR 0.9 (<1.2) Result Diagrams: 07/06/21 18:36 07/06/21 18:36 Assessment and Plan Assessment: Assessment: 1. Left hip femoral neck fracture status post fall Plan: Plan: 1. Left hip femoral neck fracture - surgery has been scheduled for this afternoon, 07/07/2021 for left total hip arthroplasty, ron-versus total, lateral approach. Nothing by mouth diet. Patient needs medical clearance. CBC, PT/INR, chest x-ray 2. Appreciate medical management - needs medical clearance 3. Pain management - stable at this time 4. PT/OT - nonweightbearing left leg. Time with Patient: Less than 30
[2021-07-07] MEDS ORDERED: ALPRAZolam 0.25 MG TAB PO PRN (10:04)
--- NOTE | 2021-07-07 10:04 | P.CONS ---
History of Present Illness - Reason for Consult Consult date: 07/07/21 pre-op risk stratification Requesting physician: Mario Cortez - History of Present Illness Patient is a 75-year-old female with an impacted left femoral neck fracture after a fall. Patient has admitted to orthopedic surgery and we've been asked to consult for medical risk stratification. Patient seen and examined at bedside. She was walking on her basement. When she noticed the second set from the bottom and subsequently fell. She immediately had some left hip pain. She denies losing consciousness. 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 She denies any recent chest pain, shortness of breath, or syncopal episodes. She is easily able to walk up one flight of stairs or down 1 city block. She reports no recent illnesses. She does have a history of osteoporosis and is getting Prolia the injections through her oncologist Dr. Awad. Her last was 2 weeks ago. She is also taking calcium and vitamin D supplements. She does report a history of a fall with fracture in 2002. Pertinent positives and negatives as discussed in HPI, a complete review of systems was performed and all other systems are negative. General: non toxic, no distress, appears at stated age Derm: warm, dry Head: atraumatic, normocephalic, symmetric Eyes: EOMI, no lid lag, anicteric sclera, pupils equal round reactive to light ENT: Nose and ears atraumatic, no thrush, no pharyngeal erythema Neck: No thyromegaly, no cervical lymphadenopathy, trachea midline, supple Mouth: no lip lesion, mucus membranes moist Cardiovascular: S1S2 reg, no murmur, positive posterior tibial pulse bilateral, no edema, capillary refill less than 2 seconds Lungs: Decreased breath sounds bilateral, no ronchi, no rales, no wheeze, no accessory muscle use Abdominal: soft, nontender to palpation, no guarding, no appreciable organomegaly, normal bowel sounds Ext: no gross muscle atrophy, muscle strength muscle strength 5 out of 5 in upper extremities, no contractures Neuro: CN II-XI grossly intact, light touch intact all 4 extremities, finger to nose within normal limits, Psych: Alert, oriented, appropriate affect Left femoral neck fracture -NSQIP: Patient has below average risk for cardiac complications, surgical site infections, readmission, and for left partial hemiarthroplasty -No additional testing is warranted to it at this time patient is medically optimized for surgery. Breast cancer -Status post radiation and in remission -Recent mammogram with in normal limits -Continue with Femara Anxiety -Resume home Xanax Thank you for allowing us to participate in the care of this pleasant patient. Do not hesitate to contact us with questions. Someone can be reached from the [facility] hospitalist group all hours of the day at [phone] or via [employer]. Past Medical History Past Medical History: Cancer Additional Past Medical History / Comment(s): LT BREAST CA status post lumpectomy and radiation treatment in 2018. 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 History of Any Multi-Drug Resistant Organisms: None Reported Past Surgical History: Breast Surgery, Joint Replacement, Tonsillectomy Additional Past Surgical History / Comment(s): Partial RT Hip Replacement 2002. Left breast biopsy and lumpectomy 2017. Cataract surgery. COLONOSCOPY 2011. Uterine myomectomy. Past Anesthesia/Blood Transfusion Reactions: No Reported Reaction Past Psychological History: Anxiety, Depression Additional Psychological History / Comment(s): Takes Xanax 0.25 prn Smoking Status: Never smoker Past Alcohol Use History: Occasional Past Drug Use History: None Reported - Past Family History Sister(s) Family Medical History: Cancer Additional Family Medical History / Comment(s): BREAST CA. Father Family Medical History: Cancer Additional Family Medical History / Comment(s): Throat cancer. Mother Additional Family Medical History / Comment(s): Heart valve replacement. 2 maternal aunts had breast cancer. Medications and Allergies Home Medications Medication Instructions Recorded Confirmed Type ALPRAZolam [Xanax] 0.125 mg PO DAILY PRN 05/04/18 07/06/21 History Multivit-Min/Iron/Folic/Lutein 1 each PO HS 05/04/18 07/06/21 History [Centrum Silver Women Tablet] Letrozole [Femara] 2.5 mg PO HS 03/05/19 07/06/21 History Geovany/D3/Mag11/Zinc/Violin Maker Hand/Nito/Bor 1 tab PO DAILY 07/06/21 07/06/21 History [Caltrate 600+D Plus Tablet] Allergies Allergy/AdvReac Type Severity Reaction Status Date / Time No Known Allergies Allergy Verified 07/06/21 20:24 Physical Exam Osteopathic Statement: *. No significant issues noted on an osteopathic structural exam other than those noted in the History and Physical/Consult. Vitals: Vital Signs Temp Pulse Pulse Resp BP BP Pulse Ox 07/07/21 04:21 99.0 F 87 18 125/73 95 07/06/21 23:00 16 07/06/21 22:49 99.1 F 93 18 166/94 95 07/06/21 21:44 74 18 150/74 96 07/06/21 20:00 62 18 150/85 99 07/06/21 18:23 99.2 F 86 18 168/90 96 Intake and Output 07/06/21 07/07/21 07/07/21 22:59 06:59 14:59 Intake Total 900 Output Total 800 Balance 100 Intake: Intake, IV Titration 900 Amount Sodium Chloride 0.9% 1, 900 000 ml @ 75 mls/hr IV . [id number] ONE Rx#:[id number] Output: Urine 800 Other: Voiding Method Indwelling Catheter Weight 65.771 kg 65.771 kg Results CBC & Chem 7: 07/06/21 18:36 07/06/21 18:36 Labs: Abnormal Lab Results - Last 24 Hours (Table) 07/06/21 07/06/21 Range/Units 18:36 18:36 APTT 20.2 L (22.0-30.0) sec Chloride 108 H (98-107) mmol/L Glucose 112 H (74-99) mg/dL Total Protein 6.1 L (6.3-8.2) g/dL
[2021-07-07 10:43] LABS: Glucose,Whole Blood 116 mg/dL (75-99)
[2021-07-07] MEDS ORDERED: IV FLUID CONTINUATION 1,000 ML IV ONE (14:00)
[2021-07-07] MEDS ORDERED: ONDANSETRON 4 MG/2 ML VIAL IVP ONE (14:16)
[2021-07-07] MEDS ORDERED: ONDANSETRON 4 MG/2 ML VIAL ONE (14:16)
[2021-07-07] MEDS ORDERED: DEXAMETHASONE SOD PHOSPHATE 4 MG/ML 1 ML VIAL IVP ONE (14:17)
[2021-07-07] MEDS ORDERED: SODIUM CHLORIDE 0.9% 100 ML BAG ONE (15:12)
[2021-07-07] MEDS ORDERED: PROPOFOL 10 MG/ML 20 ML VIAL IV ONE (15:12)
[2021-07-07] MEDS ORDERED: KETAMINE 10 MG/ML 20 ML VIAL ONE (15:12)
[2021-07-07] MEDS ORDERED: TRANEXAMIC ACID 1,000 MG/10 ML VIAL ONE (15:12)
[2021-07-07] MEDS ORDERED: MIDAZOLAM 2 MG/2 ML VIAL ONE (15:12)
[2021-07-07] MEDS ORDERED: TRANEXAMIC ACID 1,000 MG in SODIUM CHLORIDE 0.9% 100 ML IVPB PRN (15:20)
[2021-07-07] MEDS ORDERED: LACTATED RINGERS 1,000 ML IV ONE (15:24)
--- NOTE | 2021-07-07 17:12 | P.OP ---
Date of Procedure: 07/07/21 Preoperative Diagnosis: Displaced left subcapital femoral neck fracture Postoperative Diagnosis: Same Procedure(s) Performed: Left hip hemiarthroplastypress-fit Implants: Depuy Corail size 12 standard press-fit femoral stem, 46 mm unipolar head, -3 neck. Anesthesia: spinal Surgeon: Mario Cortez Loom Blower #1: Andrew Shabazz Estimated Blood Loss (ml): 200 Pathology: other (Femoral head) Condition: stable Disposition: PACU Indications for Procedure: The patient's 75-year-old female who presents after falling injuring her left hip. Upon evaluation she is noted have evidence of a displaced left subcapital femoral neck fracture. A discussion of the risks and benefits of operative intervention was made with patient and her family. Operative options were discussed and it was elected to proceed with hip hemiarthroplasty. Specific risks of surgery to include infection, neurovascular injury, development of blood clots, possible leg length discrepancy, possible instability and for subsequent procedures was discussed. Informed consent was obtained. Operative Findings: As below Description of Procedure: The patient was brought to the operating room, and after induction of spinal anesthesia was placed in the lateral decubitus position. Bony prominences were appropriately padded. The pelvis was stabilized perpendicular to the floor with a pegboard. The left lower extremity was prepped and draped in normal fashion. A 12 cm incision was then made centered over the greater trochanter extending superiorly to level ASIS and distally along the femoral shaft. Skin and subcutaneous tissues were divided sharply. Electrocautery was used for hemostasis. The fascia samia and gluteus bakari fascia was split in line with the skin incision. Muscle fibers were bluntly dissected proximally. A self- retaining retractor was placed. The anterior and posterior margins of the gluteus medius muscles identified in the into two thirds detached the greater trochanter with electrocautery. The gluteus minimus tendon was identified and detached in a similar fashion. A T-shaped capsulotomy was performed. The capsular flaps were tagged with #2 Ethibond suture. The femoral neck fracture was then identified. A lower neck cut was made at 45 the shaft with a sagittal saw to help facilitate head extraction. The femoral head was then extracted with a corkscrew. It measured 46 millimeters . The acetabulum was inspected. No significant chondral injury was noted. Attention was then paid towards preparing the proximal femur. A box chisel was used to open the metaphyseal region. A canal finder was used to find the femoral canal. Sequential broaching was performed up to a size 12 broach with the leg perpendicular to the floor in 15 of anteversion. There was good rotational stability. A calcar mill was used to fashion the medial calcar. A -3 neck and 46 mm unipolar head was placed. The hip was gently reduced. It was taken through range of motion and felt to be stable in flexion and extension with internal and external rotation. I felt there was adequate catholic of soft tissue tension. Hip was gently dislocated. The trial components were then removed. Pulsatile lavage was utilized. The final size 12 standard collared femoral stem was inserted again with the leg perpendicular to the floor in 15 of anteversion. This was fully seated. Again there was good rotational stability. A -3 neck and 48 mm unipolar head was gently impacted. Hip was gently reduced. Again it was taken through range of motion felt to be stable in flexion and extension with internal and external rotation. Again I felt there was adequate catholic of soft tissue tension. Pulsatile lavage was again utilized. The capsular layer was closed with interrupted #2 Ethibond suture. The gluteus minimus and medius tendons reattached the greater trochanter with #2 Ethibond suture. The fascia samia and gluteus bakari fascia was closed with running #2 Ethibond suture. There is minimal drainage therefore a deep drain was not placed. The subcutaneous tissues were reapproximated interrupted 2-0 Vicryl sutures. Skin was reapproximated with 3-0 subcuticular strata fix suture. Skin tape and adhesive was applied. A sterile dressing was applied. The patient was then awoken from sedation and transferred to recovery room in fair condition. Blood loss was estimated 200 mL. No complications were incurred. Sponge and needle counts were correct at the end the case. Andrew DICKERSON assisted during the major components the case to include positioning, exposure, implantation, and closure.
[2021-07-07] MEDS ORDERED: HYDROcodone/APAP 5-325MG 1 EACH TAB PO PRN (17:40)
[2021-07-07] MEDS ORDERED: NALOXONE 0.4 MG/ML 1 ML VIAL IV PRN (17:40)
[2021-07-07] MEDS ORDERED: HYDROmorphone 0.2 MG/1 ML SYRINGE IVP PRN (17:40)
--- NOTE | 2021-07-07 17:43 | XR ---
EXAMINATION TYPE: XR Hip Limited LT DATE OF EXAM: 07/07/2021 COMPARISON: 07/06/2021 HISTORY: Fall. Hip pain TECHNIQUE: 3 views FINDINGS: There is left hip prosthesis. Components appear in good position. IMPRESSION: No complicating process seen.
[2021-07-07] MEDS: SENNOSIDES-DOCUSATE SODIUM 1 EACH TAB PO SCH (20:51)
[2021-07-07] MEDS: MULTIVITAMINS, THERA 1 EACH TAB PO SCH (20:51)
[2021-07-07] MEDS: LETROZOLE 2.5 MG TAB PO SCH (20:51)
[2021-07-08 06:28] LABS: Basophils % (A) 0 %; Eosinophils % (A) 0 %; HCT 37.5 % (34.0-46.0); HGB 12.3 gm/dL (11.4-16.0); Lymphocytes # (A) 0.6 k/uL (1.0-4.8); Lymphocytes % (A) 8 %; MCH 30.8 pg (25.0-35.0); MCHC 32.9 g/dL (31.0-37.0); MCV 93.6 fL (80.0-100.0); Mean Platelet Volume 7.4; Monocytes # (A) 0.4 k/uL (0-1.0); Monocytes % (A) 5 %; Neutrophils # (A) 6.4 k/uL (1.3-7.7); Neutrophils % (A) 86 %; Platelet Count 177 k/uL (150-450); RDW 12.2 % (11.5-15.5); WBC 7.4 k/uL (3.8-10.6)
[2021-07-08] MEDS: ENOXAPARIN 40 MG/0.4 ML SYRINGE SQ SCH (08:12)
--- NOTE | 2021-07-08 11:34 | P.PN ---
<Gonsalo Garrett - Last Filed: 07/08/21 17:06> Subjective Progress Note Date: 07/08/21 Hospital course: Patient is a 75-year-old female with a past medical history of osteo arthritis, osteoporosis receiving Prolia injections and taking daily calcium and vitamin D supplements, history of breast cancer status post radiation and in remission. She presented to the hospital on February 03 status post a mechanical fall in which patient was walking down basement steps and ac cidentally missed a step resulting in fall onto her left hip. Patient was seen and fully evaluated in the emergency department where she was found to have an impacted left femoral neck fracture resulting in admission under orthopedic surgery team and we have been asked to consult for medical risk stratification. Physical examination: Patient was seen and fully evaluated at the bedside this morning. She reports feeling much better today. Patient reports significant improvement in pain. Patient sitting up in chair at this time. She states pain does significantly increase upon standing but states she has been getting up with assistance today. She denies having any postoperative nausea or vomiting. Sims catheter remains in place, discussed with RN plans to remove and complete a voiding trial. General: non toxic, no distress, appears at stated age Derm: warm, dry Head: atraumatic, normocephalic, symmetric Eyes: EOMI, no lid lag, anicteric sclera Mouth: no lip lesion, mucus membranes moist Cardiovascular: S1S2 reg, no murmur, positive posterior tibial pulse bilateral, Lungs: CTA bilateral, no rhonchi, no rales , no accessory muscle use Abdominal: soft, nontender to palpation, no guarding, no appreciable organomegaly Ext: no gross muscle atrophy, no edema, no contractures Neuro: CN II-XI grossly intact, no focal neuro deficits Psych: Alert, oriented, appropriate affect Assessment and plan of care: Left femoral neck fracture status post mechanical fall -DVT prophylaxis, weightbearing, PT/OT, and pain management per primary admitting orthopedic surgery team. -Currently DVT prophylaxis with Lovenox. Breast cancer -Status post radiation and in remission -Recent mammogram with in normal limits -Continue with Femara Anxiety -Resume home Xanax Thank you for allowing us to participate in the care of this pleasant patient. Do not hesitate to contact us with questions. Someone can be reached from the [facility] hospitalist group all hours of the day at [phone] or via perfect serve. Objective - Vital Signs Vital signs: Vital Signs Temp 99.6 F 07/08/21 04:30 Pulse 86 07/08/21 04:30 Resp 20 07/08/21 04:30 BP 128/77 07/08/21 04:30 Pulse Ox 97 07/08/21 04:30 Intake & Output 07/07/21 07/08/21 07/08/21 18:59 06:59 18:59 Intake Total 1650 250 Output Total 550 1400 Balance 1100 -1150 Intake: IV 1650 Intake, IV Titration 250 Amount Sodium Chloride 0.9% 1, 200 000 ml @ 75 mls/hr IV . [id number] ONE Rx#:[id number] ceFAZolin 2 gm In Sodium 50 Chloride 0.9% 50 ml @ 100 mls/hr IVPB Q8HR [facility] Rx# :[id number] Output: Urine 350 1400 Uretheral (Sims) 1400 Estimated Blood Loss 200 Other: Voiding Method Indwelling Catheter Indwelling Catheter Indwelling Catheter - Labs CBC & Chem 7: 07/08/21 06:07 07/06/21 18:36 Labs: Abnormal Lab Results - Last 24 Hours (Table) 07/08/21 Range/Units 06:07 Lymphocytes # 0.6 L (1.0-4.8) k/uL <Cris Christine - Last Filed: 07/08/21 17:38> Objective - Vital Signs Vital signs: Vital Signs Temp 98.4 F 07/08/21 13:00 Pulse 75 07/08/21 13:00 Resp 17 07/08/21 13:00 BP 129/91 07/08/21 13:00 Pulse Ox 93 L 07/08/21 13:00 Intake & Output 07/07/21 07/08/21 07/08/21 18:59 06:59 18:59 Intake Total 1650 250 Output Total 550 1400 Balance 1100 -1150 Intake: IV 1650 Intake, IV Titration 250 Amount Sodium Chloride 0.9% 1, 200 000 ml @ 75 mls/hr IV . [id number] ONE Rx#:[id number] ceFAZolin 2 gm In Sodium 50 Chloride 0.9% 50 ml @ 100 mls/hr IVPB Q8HR [facility] Rx# :[id number] Output: Urine 350 1400 Uretheral (Sims) 1400 Estimated Blood Loss 200 Other: Voiding Method Indwelling Catheter Indwelling Catheter Indwelling Catheter - Labs CBC & Chem 7: 07/08/21 06:07 07/06/21 18:36 Labs: Abnormal Lab Results - Last 24 Hours (Table) 07/08/21 Range/Units 06:07 Lymphocytes # 0.6 L (1.0-4.8) k/uL Assessment and Plan Assessment: I reviewed the documentation as provided by the ROSA above, who is the original author of this note. I agree with the documented assessment and plan, with the following changes: None
--- NOTE | 2021-07-08 12:45 | P.PN ---
Subjective Progress Note Date: 07/08/21 Principal diagnosis: left hip femoral neck fracture Patient was seen at bedside this morning resting comfortably lying semirecumbent. Patient states she is really not in much pain on left hip. Patient states she has not been up to walk around much. I talked to patient's nurse who mentioned patient felt A little bit dizzy when she got up with physical therapy. Patient denies chest pain, fever, shortness breath, nausea, vomiting, change in vision, loss of bowel/bladder control. Objective - Vital Signs Vital signs: Vital Signs Temp 99.6 F 07/08/21 04:30 Pulse 86 07/08/21 04:30 Resp 20 07/08/21 04:30 BP 128/77 07/08/21 04:30 Pulse Ox 97 07/08/21 04:30 Intake & Output 07/07/21 07/08/21 07/08/21 18:59 06:59 18:59 Intake Total 1650 250 Output Total 550 1400 Balance 1100 -1150 Intake: IV 1650 Intake, IV Titration 250 Amount Sodium Chloride 0.9% 1, 200 000 ml @ 75 mls/hr IV . [id number] [facility] Rx#:[id number] ceFAZolin 2 gm In Sodium 50 Chloride 0.9% 50 ml @ 100 mls/hr IVPB Q8HR [facility] Rx# :[id number] Output: Urine 350 1400 Uretheral (Sims) 1400 Estimated Blood Loss 200 Other: Voiding Method Indwelling Catheter Indwelling Catheter Indwelling Catheter - Exam Inspection: Incision is CDI. No evidence of open fractures. Negative for any ecchymosis. Negative for any significant discoloration other than as noted. Negative for nodules, erythema. Sensation: Sensation is intact in bilateral upper extremities symmetric, equal in distribution. Sensation is intact in bilateral lower extremities symmetric, equal in distribution Palpation: Mild TTP left femur laterally. Nontender to palpation throughout rest of exam Range of motion: Limited range of motion in the left leg due to patient being in significant pain. Bilateral upper extremities full range of motion in elbow extension/flexion as well as shoulder internal and external rotation abduction and forward elevation. Right lower extremity full range of motion and knee flexion extension and hip flexion extension. Plantar and dorsiflexion full range of motion bilaterally Motor: Strength 5 out of 5 in upper extremities as well as metals analyst strength. Right lower extremity 5/5 in resisted flexion extension and hip flexion extension. Left leg exam limited due to patient being in pain Neurovascular status/tensioning signs: Refill under 3 seconds bilaterally in lower and upper extremities. Skin mildly warm to touch in hands bilaterally as well as bilaterally in the lower extremities. Dorsalis pedis pulses intact, 2+ bilaterally. Radial pulses intact, 2+ bilaterally. Negative Homans bilaterally. Negative Naomi's bilaterally. Negative clonus upon dorsiflexing feet bilaterally. - Labs CBC & Chem 7: 07/08/21 06:07 07/06/21 18:36 Labs: Abnormal Lab Results - Last 24 Hours (Table) 07/08/21 Range/Units 06:07 Lymphocytes # 0.6 L (1.0-4.8) k/uL Assessment and Plan Assessment: Assessment: 1. POD #1 s/p left hip hemiarthroplasty Plan: Plan: 1. Left hip femoral neck fracture - surgery performed yesterday, 07/07/2021 - left hip hemiarthroplasty. 2. Appreciate medical management 3. Pain management - stable at this time. Continue [place]. 4. PT/OT -WBAT with walker for assistance 5. DVT ppx/GI ppx - Lovenox; Senna 6. Discharge planning - Plan to discharge home vs rehab tmrw vs Monday. Time with Patient: Less than 30
[2021-07-08] MEDS: HYDROcodone/APAP 7.5-325MG 1 EACH TAB PO PRN (14:29)
[2021-07-08] MEDS: SENNOSIDES-DOCUSATE SODIUM 1 EACH TAB PO SCH (21:19)
[2021-07-08] MEDS: LETROZOLE 2.5 MG TAB PO SCH (21:19)
[2021-07-08] MEDS: MULTIVITAMINS, THERA 1 EACH TAB PO SCH (21:19)
--- NOTE | 2021-07-09 08:32 | XR ---
EXAMINATION TYPE: XR chest 1V portable DATE OF EXAM: 07/09/2021 COMPARISON: 07/06/2021 INDICATION: Fever TECHNIQUE: Single frontal view of the chest is obtained. FINDINGS: The heart size is normal. The pulmonary vasculature is normal. The lungs are clear. IMPRESSION: 1. No acute pulmonary process.
[2021-07-09] MEDS: ENOXAPARIN 40 MG/0.4 ML SYRINGE SQ SCH (09:17)
[2021-07-09 09:34] LABS: HCT 38.6 % (34.0-46.0); HGB 12.5 gm/dL (11.4-16.0); MCH 30.4 pg (25.0-35.0); MCHC 32.4 g/dL (31.0-37.0); Mean Platelet Volume 7.5; Platelet Count 181 k/uL (150-450); RBC 4.11 m/uL (3.80-5.40); RDW 12.2 % (11.5-15.5); WBC 7.1 k/uL (3.8-10.6)
--- NOTE | 2021-07-09 09:55 | P.PN ---
Subjective Progress Note Date: 07/09/21 Principal diagnosis: left hip femoral neck fracture Patient was seen at bedside this morning resting comfortably and eating breakfast sitting up in chair. Patient states she is really not in much pain on left hip until she moves. Patient states she got up with PT yesterday and walked to bathroom and back with walker for assistance. She says PT went a little better this morning, but is still a little weak. Patient says she feels somewhat dizzy when she changes positions too quickly. Patient denies chest pain, fever, shortness breath, nausea, vomiting, change in vision, loss of bowel/bladder control. Objective - Vital Signs Vital signs: Vital Signs Temp 98.8 F 07/09/21 07:25 Pulse 86 07/09/21 09:00 Resp 17 07/09/21 07:25 BP 118/65 07/09/21 07:25 Pulse Ox 96 07/09/21 04:45 Intake & Output 07/08/21 07/09/21 07/09/21 18:59 06:59 18:59 Intake Total 540 Output Total 1000 Balance -460 Intake: Oral 540 Output: Urine 1000 Other: Voiding Method Indwelling Catheter Indwelling Catheter Indwelling Catheter # Bowel Movements 3 - Exam Inspection: Incision is CDI. No evidence of open fractures. Negative for any ecchymosis. Negative for any significant discoloration other than as noted. Negative for nodules, erythema. Sensation: Sensation is intact in bilateral upper extremities symmetric, equal in distribution. Sensation is intact in bilateral lower extremities symmetric, equal in distribution Palpation: Mild TTP left femur laterally. Nontender to palpation throughout rest of exam Range of motion: Limited range of motion in the left leg due to patient being in significant pain. Bilateral upper extremities full range of motion in elbow extension/flexion as well as shoulder internal and external rotation abduction and forward elevation. Right lower extremity full range of motion and knee flexion extension and hip flexion extension. Plantar and dorsiflexion full range of motion bilaterally Motor: Strength 5 out of 5 in upper extremities as well as car dryer strength. Right lower extremity 5/5 in resisted flexion extension and hip flexion extension. Left leg exam limited due to patient being in pain Neurovascular status/tensioning signs: Refill under 3 seconds bilaterally in lower and upper extremities. Skin mildly warm to touch in hands bilaterally as well as bilaterally in the lower extremities. Dorsalis pedis pulses intact, 2+ bilaterally. Radial pulses intact, 2+ bilaterally. Negative Homans bilaterally. Negative Naomi's bilaterally. Negative clonus upon dorsiflexing feet bilaterally. - Labs CBC & Chem 7: 07/09/21 08:44 07/06/21 18:36 Assessment and Plan Assessment: Assessment: 1. POD #2 s/p left hip hemiarthroplasty Plan: Plan: 1. Left hip femoral neck fracture - surgery performed 07/07/2021 - left hip hemiarthroplasty. script for walker ordered 2. Appreciate medical management 3. Pain management - stable at this time. Continue [place]. 4. PT/OT -WBAT with walker for assistance 5. DVT ppx/GI ppx - Lovenox; Senna 6. Discharge planning - Plan to discharge home vs rehab tmrw. Time with Patient: Less than 30
--- NOTE | 2021-07-09 10:22 | P.PN ---
Subjective Progress Note Date: 07/09/21 Principal diagnosis: fall Patient is a 75-year-old female with a history of breast cancer status post lumpectomy on oral therapy, osteoporosis on [place], and recent fall who underwent operative repair of left hip fracture. Patient seen and examined at bedside. She did have mild fevers overnight. She denies any shortness of breath, coughing, nausea, vomiting. She did have one episode of liquid stools. She does not want to go to rehab and wants to go home. We discussed that she's not able to ambulate at least to and from the bathroom she likely will need rehab. It appears she is having some confusion with regards to who is working with her. General: non toxic, no distress, appears at stated age Derm: warm, dry Head: atraumatic, normocephalic, symmetric Eyes: EOMI, no lid lag, anicteric sclera Mouth: no lip lesion, mucus membranes moist Cardiovascular: S1S2 reg, no murmur, positive posterior tibial pulse bilateral, Lungs: Decreased breath sounds bilateral, no rhonchi, no rales , no accessory muscle use Ext: no gross muscle atrophy, no edema, no contractures Neuro: CN II-XI grossly intact, no focal neuro deficits Psych: Alert, oriented, appropriate affect Left femoral neck fracture status post mechanical fall -PT/OT - lovenox - Pain managmeent per ortho - encourage IS [place] - supportive care - limit narcotics as able Fevers - CXR negative - D/C bedoya cath - repeat CBC within normal limits Breast cancer -Status post radiation and in remission -Recent mammogram with in normal limits -Continue with Femara Anxiety - Xanax Medically optimized for discharge at the discresion of ortho Objective - Vital Signs Vital signs: Vital Signs Temp 98.8 F 07/09/21 07:25 Pulse 86 07/09/21 09:00 Resp 17 07/09/21 07:25 BP 118/65 07/09/21 07:25 Pulse Ox 96 07/09/21 04:45 Intake & Output 07/08/21 07/09/21 07/09/21 18:59 06:59 18:59 Intake Total 540 Output Total 1000 Balance -460 Intake: Oral 540 Output: Urine 1000 Other: Voiding Method Indwelling Catheter Indwelling Catheter Indwelling Catheter # Bowel Movements 3 - Labs CBC & Chem 7: 07/09/21 08:44 07/06/21 18:36
[2021-07-09] MEDS: HYDROcodone/APAP 7.5-325MG 1 EACH TAB PO PRN (15:00)
[2021-07-09 20:28] VITALS: RESP 18
[2021-07-09] MEDS: LETROZOLE 2.5 MG TAB PO SCH (21:18)
[2021-07-09] MEDS: MULTIVITAMINS, THERA 1 EACH TAB PO SCH (21:19)
[2021-07-09] MEDS: SENNOSIDES-DOCUSATE SODIUM 1 EACH TAB PO SCH (21:19)
[2021-07-10] MEDS: HYDROcodone/APAP 7.5-325MG 1 EACH TAB PO PRN (05:21)
[2021-07-10 07:37] LABS: Basophils % (A) 1 %; Eosinophils # (A) 0.2 k/uL (0-0.7); Eosinophils % (A) 3 %; HGB 11.9 gm/dL (11.4-16.0); Lymphocytes # (A) 1.3 k/uL (1.0-4.8); Lymphocytes % (A) 23 %; MCH 31.4 pg (25.0-35.0); MCHC 33.9 g/dL (31.0-37.0); MCV 92.7 fL (80.0-100.0); Mean Platelet Volume 7.5; Monocytes # (A) 0.4 k/uL (0-1.0); Monocytes % (A) 8 %; Neutrophils # (A) 3.5 k/uL (1.3-7.7); Neutrophils % (A) 63 %; Platelet Count 167 k/uL (150-450); RBC 3.77 m/uL (3.80-5.40); WBC 5.5 k/uL (3.8-10.6)
--- NOTE | 2021-07-10 11:11 | P.DS ---
Providers Date of admission: 07/06/21 19:20 Expected date of discharge: 07/10/21 Attending physician: Mario Cortez Consults: 07/06/21 19:19 Consult Physician Urgent Consulting Provider: Mago Cabello Consult Reason/Comments: Medical clearance Do you want consulting provider notified?: Yes 07/07/21 17:40 Consult Physician Routine Consulting Provider: Mago Cabello Consult Reason/Comments: medical management s/p left hip hemiarthroplasty Do you want consulting provider notified?: Yes Primary care physician: Darwin Mcdonald MD Hospital Course: Date of admission: 07/07/2021 Date of discharge: 07/10/2021 Admission diagnosis: Left hip femoral neck fracture Discharge diagnosis: Same Attending physician: Dr. Cortez Surgical procedures: Left hip hemiarthroplasty Brief history: Patient is a 75-year-old female with a history of left hip femoral neck fracture status post fall. At this point patient has failed conservative treatment measures and has opted to proceed with a elective left hip hemiarthroplasty. Hospital course: Details of patient's surgery can be found in operative report. Patient tolerated the procedure well and was subsequently transported to orthopedic floor. Patient's orthopeidc and medical care was provided daily. Patient had daily laboratory tests performed for evaluation of overall blood counts. Patient had daily physical therapy to include strengthening range of motion as well as education with walker ambulation. Patient was treated with Lovenox for their postoperative DVT prophylaxis during their inpatient stay. Patient was noted to have a relatively uneventful postoperative course. Patient reported satisfactory pain control with oral pain medications by postoperative day 3. Patient showed satisfactory progress with physical therapy. Patient moved steadily through the program and had no difficulty meeting the goals by postoperative day 3. Given patient's otherwise satisfactory course and having met physical therapy goals, plan is to discharge patient home on postoperative day 3. Discharge condition/disposition: Patient will be discharged home in stable condition. Discharge medications: Instructions are given on resumption of patient's normal daily medications per primary care recommendation, in addition patient will be prescribed [place] 5 mg/325 mg; senna; Eliquis 2.5 mg BID x 2 weeks. Discharge instructions: 1. Wound care and infection precautions, keep incision dry and covered while showering, no lotions, creams, moisturizers. No soaking, tubs, pools, hottubs. Do not scrub over the incision. 2. Weight-bear as tolerated with walker / cane until follow-up. 3. Ice and elevate when necessary. Do not exceed 20 minutes per hour with ice pack. 4. Utilize compression sleeve until seen at first follow up appointment. 5. Visiting nursing care. 6. Home physical therapy. 7. Pain meds and anticoagulants per prescription. 8. Pain medication has potential to cause constipation. Increase oral fluid and fiber intake. Contact primary care provider if you have not had a bowel movement within 48 hours after discharge 9. No anti-inflammatory medication until discussed at first post operative visit, this including Motrin, Aleve, Mobic, Diclofenac. 10. Follow up in office at 2 weeks postop with Adriel Mohr PA-C / Andrew Shabazz PA-C 11. Follow up with your primary care doctor 7-10 days after discharge. 12. Contact [facility] with any questions, . Assessment: Left hip femoral neck fracture Procedures: Left hip hemiarthroplasty Patient Condition at Discharge: Good Plan - Discharge Summary Discharge Rx Participant: Yes New Discharge Prescriptions: New Docusate [Colace] 100 mg PO DAILY #30 cap Apixaban [Eliquis] 2.5 mg PO BID #60 tab HYDROcodone/APAP 7.5-325MG [[place] 7.5] 1 each PO Q6HR PRN #28 tab PRN Reason: Pain Continue ALPRAZolam [Xanax] 0.125 mg PO DAILY PRN PRN Reason: Anxiety Multivit-Min/Iron/Folic/Lutein [Centrum Silver Women Tablet] 1 each PO HS Letrozole [Femara] 2.5 mg PO HS [place]/D3/Mag11/Zinc/Property Supervisor/Nito/Bor [Caltrate 600+D Plus Tablet] 1 tab PO DAILY Discharge Medication List ALPRAZolam [Xanax] 0.125 mg PO DAILY PRN 05/04/18 [History] Multivit-Min/Iron/Folic/Lutein [Centrum Silver Women Tablet] 1 each PO HS 05/04/18 [History] Letrozole [Femara] 2.5 mg PO HS 03/05/19 [History] Geovany/D3/Mag11/Zinc/Property Supervisor/Nito/Bor [Caltrate 600+D Plus Tablet] 1 tab PO DAILY 07/06/21 [History] Apixaban [Eliquis] 2.5 mg PO BID #60 tab 07/10/21 [Rx] Docusate [Colace] 100 mg PO DAILY #30 cap 07/10/21 [Rx] HYDROcodone/APAP 7.5-325MG [[place] 7.5] 1 each PO Q6HR PRN #28 tab 07/10/21 [Rx] Follow up Appointment(s)/Referral(s): Darwin Mcdonald MD [Primary Care Provider] - 1-2 days [facility] [NON-STAFF] - 1 Week [facility] [NON-STAFF] - 1 Week [facility] [NON-STAFF] - 1 Week Andrew Shabazz PAC [PHYSICIAN FRANKFURTER INSPECTOR] - 07/22/21 Activity/Diet/Wound Care/Special Instructions: residential home care is planning on seeing you on Monday- they will call to make arrangements. Discharge instructions: 1. Wound care and infection precautions, keep incision dry and covered while showering, no lotions, creams, moisturizers. No soaking, tubs, pools, hottubs. Do not scrub over the incision. 2. Weight-bear as tolerated with walker / cane until follow-up. 3. Ice and elevate when necessary. Do not exceed 20 minutes per hour with ice pack. 4. Utilize compression sleeve until seen at first follow up appointment. 5. Visiting nursing care. 6. Home physical therapy. 7. Pain meds and anticoagulants per prescription. 8. Pain medication has potential to cause constipation. Increase oral fluid and fiber intake. Contact primary care provider if you have not had a bowel movement within 48 hours after discharge 9. No anti-inflammatory medication until discussed at first post operative visit, this including Motrin, Aleve, Mobic, Diclofenac. 10. Follow up in office at 2 weeks postop with Adriel Mohr PA-C / Andrew Shabazz PA-C 11. Follow up with your primary care doctor 7-10 days after discharge. 12. Contact [facility] with any questions, . [place] 7.5 mg/325 mg every 6 hours #28. Eliquis 2.5 mg BID x 2 weeks. Colace 100 mg Discharge Disposition: HOME WITH HOME HEALTH SERVICES
--- NOTE | 2021-07-10 11:14 | P.PN ---
Subjective Progress Note Date: 07/10/21 Principal diagnosis: left hip femoral neck fracture Patient seen at bedside this morning resting calculator in chair. Patient says she got up with physical therapy this morning using walker and was able to walk to the hallway and the bathroom without problem. She says she is ready to go home today. She says she does have a walker to take home now. Patient says she is really not in much pain at all. Patient says she has been using incentive spirometer each day. Patient says she has had a bowel movement. Patient denies chest pain, fever, shortness of breath, nausea, vomiting, change in vision, loss of bowel/bladder control. Objective - Vital Signs Vital signs: Vital Signs Temp 99.9 F H 07/10/21 04:52 Pulse 81 07/10/21 08:25 Resp 18 07/10/21 08:25 BP 107/66 07/10/21 04:52 Pulse Ox 98 07/10/21 04:52 Intake & Output 07/09/21 07/10/21 07/10/21 18:59 06:59 18:59 Intake Total 360 120 Output Total 1200 Balance -840 120 Intake: Oral 360 120 Output: Urine 1200 Other: Voiding Method Indwelling Catheter Toilet Toilet # Voids 3 2 # Bowel Movements 3 - Labs CBC & Chem 7: 07/10/21 07:05 07/06/21 18:36 Labs: Abnormal Lab Results - Last 24 Hours (Table) 07/10/21 Range/Units 07:05 RBC 3.77 L (3.80-5.40) m/uL Assessment and Plan Assessment: Assessment: 1. POD #3 s/p left hip hemiarthroplasty Plan: Plan: 1. Left hip femoral neck fracture - surgery performed 07/07/2021 - left hip hemiarthroplasty. Plan discharge patient home today. Patient has walker for home. Follow-up with [facility] in 2 weeks in office. 2. Appreciate medical management 3. Pain management - stable at this time. Continue [place]. 4. PT/OT -WBAT with walker for assistance 5. DVT ppx/GI ppx - Lovenox; Senna; patient going home with Colace and Eliquis. Patient to take Eliquis twice a day x 2 weeks. 6. Discharge planning - patient being discharged home today with health services Time with Patient: Less than 30
[2021-07-10 11:39] VITALS: BP 109/69; PULSE 82; TEMP 99.2
[2021-07-10] MEDS: ENOXAPARIN 40 MG/0.4 ML SYRINGE SQ SCH (11:55)
--- NOTE | 2021-07-10 13:44 | P.PN ---
Subjective Progress Note Date: 07/10/21 Hospital course: Patient is a 75-year-old female with a past medical history of osteoarthritis, osteoporosis receiving Prolia injections and taking daily calcium and vitamin D supplements, history of breast cancer status post radiation and in remission. She presented to the hospital on February 03 status post a mechanical fall in which patient was walking down basement steps and accidentally missed a step resulting in fall onto her left hip. Patient was seen and fully evaluated in the emergency department where she was found to have an impacted left femoral neck fracture resulting in admission under orthopedic surgery team and we have been asked to consult for medical risk stratification. Patient underwent left hip hemiarthroplasty on 07/07/21. Physical examination: Patient was seen and fully evaluated at the bedside this morning. She is ambulating in room with walker and assistance of RN.. Patient reports postoperative pain is controlled.. She denies having any other complaints including chest pain, palpitations, shortness of breath, abdominal pain, nausea, vomiting, or any other complaints. Sims catheter had been removed and patient urinating without any difficulties. Patient medically stable for discharge once cleared by orthopedic surgery team. General: non toxic, no distress, appears at stated age Derm: warm, dry Head: atraumatic, normocephalic, symmetric Eyes: EOMI, no lid lag, anicteric sclera Mouth: no lip lesion, mucus membranes moist Cardiovascular: S1S2 reg, no murmur, positive posterior tibial pulse bilateral, Lungs: CTA bilateral, no rhonchi, no rales , no accessory muscle use Abdominal: soft, nontender to palpation, no guarding, no appreciable organomegaly Ext: no gross muscle atrophy, no edema, no contractures Neuro: CN II-XI grossly intact, no focal neuro deficits Psych: Alert, oriented, appropriate affect Assessment and plan of care: Status post Left hip hemiarthroplasty secondary to femoral neck fracture from mechanical fall -DVT prophylaxis, weightbearing, PT/OT, and pain management per primary admitting orthopedic surgery team. -Postoperative day 3 -Currently DVT prophylaxis with Lovenox. Breast cancer -Status post radiation and in remission -Recent mammogram with in normal limits -Continue with Femara Anxiety -Resume home Xanax Thank you for allowing us to participate in the care of this pleasant patient. Do not hesitate to contact us with questions. Someone can be reached from the [facility] hospitalist group all hours of the day at [phone] or via perfect serve. Objective - Vital Signs Vital signs: Vital Signs Temp 99.2 F 07/10/21 11:08 Pulse 82 07/10/21 11:08 Resp 18 07/10/21 11:08 BP 109/69 07/10/21 11:08 Pulse Ox 97 07/10/21 11:08 Intake & Output 07/09/21 07/10/21 07/10/21 18:59 06:59 18:59 Intake Total 360 120 Output Total 1200 Balance -840 120 Intake: Oral 360 120 Output: Urine 1200 Other: Voiding Method Indwelling Catheter Toilet Toilet # Voids 3 2 # Bowel Movements 3 - Labs CBC & Chem 7: 07/10/21 07:05 07/06/21 18:36 Labs: Abnormal Lab Results - Last 24 Hours (Table) 07/10/21 Range/Units 07:05 RBC 3.77 L (3.80-5.40) m/uL
== END 2021-07-10 14:40 | disposition home health service (06) | DRG 522 ==
LOC: EC 18:22 → 5NMEDONC 19:20
PROVIDERS: ADMIT Orthopaedic Surgery; ATTEND Orthopaedic Surgery
PROC: 0SRS0JA Replacement of Left Hip Joint, Femoral Surface with Synthetic Substitute, Uncemented, Open Approach (ICD-10-PCS; principal; 2021-07-07 07:30)
DX: S72.012A Unspecified intracapsular fracture of left femur, initial encounter for closed fracture (principal); F32.9 Major depressive disorder, single episode, unspecified; F41.9 Anxiety disorder, unspecified; M54.5 Low back pain; M85.88 Other specified disorders of bone density and structure, other site; R41.0 Disorientation, unspecified; M81.0 Age-related osteoporosis without current pathological fracture; Z20.822 Contact with and (suspected) exposure to COVID-19; W10.9XXA Fall (on) (from) unspecified stairs and steps, initial encounter; Y93.01 Activity, walking, marching and hiking; Z79.811 Long term (current) use of aromatase inhibitors; Z85.3 Personal history of malignant neoplasm of breast; Z92.3 Personal history of irradiation; Z96.641 Presence of right artificial hip joint; Z98.49 Cataract extraction status, unspecified eye; Z96.643 Presence of artificial hip joint, bilateral; Z79.899 Other long term (current) drug therapy
CPT/HCPCS: 36415; 71045; 73501; 73502; 80053; 85025; 85027; 85610; 85730; 86850; 86900; 86901; 87635; 88305; 88311; 93005; 99285

== ENCOUNTER 2022-03-02 13:27 | Emergency (ER) | payer MEDICARE ==
[2022-03-02 13:43] VITALS: RESP 18
[2022-03-02] MEDS ORDERED: SODIUM CHLORIDE 0.9% 500 ML 500 ML IV ONE (14:10)
--- NOTE | 2022-03-02 14:13 | CT ---
EXAMINATION TYPE: CT brain wo con DATE OF EXAM: 03/02/2022 COMPARISON: None available HISTORY: dizziness, htn, weakness CT DLP: 1070.4 mGycm Automated exposure control for dose reduction was used. TECHNIQUE: CT scan of the brain is performed without IV contrast administration. FINDINGS: Brain volume loss changes, likely age-related. Bilateral cerebral white matter hypodensities, likely representing chronic microvascular ischemic changes. Suspected tiny bilateral basal ganglia lacunar i nfarcts. Scattered arterial atherosclerotic calcifications. No acute intracranial hemorrhage. No gross acute cortical infarct. No midline shift or herniation. Un remarkable basal cisterns, sella and CP angles. No gross space-occupying lesion, vasogenic edema or m ass effect. Unremarkable orbits. Mucosal thickening of the right maxillary sinus. Clear mastoid air cells. No agg ressive bone lesion. IMPRESSION: No acute intracranial abnormality or gross space-occupying lesion by this nonenhanced CT scan. Chroni c findings as described above.
--- NOTE | 2022-03-02 14:24 | ED ---
General Adult HPI - General Chief complaint: Dizziness Stated complaint: Neuro issue Time Seen by Provider: 03/02/22 13:48 Source: patient, RN notes reviewed, old records reviewed Mode of arrival: ambulatory Limitations: no limitations - History of Present Illness Initial comments: 76-year-old female presenting for evaluation of dizziness, lightheadedness, and hypertension. Patient was sent in by the primary care physician for computed tomography scan of the brain. In the office of blood pressure had been elevated and there was concern given the patient's concurrent dizziness. She does not have any speech abnormality or focal numbness or weakness reported. She states she has been dealing with some unsteady gait for the past several weeks which she believes was secondary to sciatic nerve problem that she is currently on steroids 4. There's been no cough or URI symptoms. No vomiting or diarrhea. - Related Data Home Medications Medication Instructions Recorded Confirmed ALPRAZolam [Xanax] 0.125 mg PO DAILY PRN 05/04/18 07/06/21 Multivit-Min/Iron/Folic/Lutein 1 each PO HS 05/04/18 07/06/21 [Centrum Silver Women Tablet] Letrozole [Femara] 2.5 mg PO HS 03/05/19 07/06/21 Geovany/D3/Mag11/Zinc/Loader Demolder/Nito/Bor 1 tab PO DAILY 07/06/21 07/06/21 [Caltrate 600+D Plus Tablet] Previous Rx's Medication Instructions Recorded Apixaban [Eliquis] 2.5 mg PO BID #60 tab 07/10/21 Docusate [Colace] 100 mg PO DAILY #30 cap 07/10/21 HYDROcodone/APAP 7.5-325MG [[place] 1 each PO Q6HR PRN #28 tab 07/10/21 7.5] Allergies Allergy/AdvReac Type Severity Reaction Status Date / Time No Known Allergies Allergy Verified 03/02/22 13:43 Review of Systems ROS Statement: Those systems with pertinent positive or pertinent negative responses have been documented in the HPI. ROS Other: All systems not noted in ROS Statement are negative. Past Medical History Past Medical History: Cancer Additional Past Medical History / Comment(s): LT BREAST CA status post lumpectomy and radiation treatment in 2018. 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 History of Any Multi-Drug Resistant Organisms: None Reported Past Surgical History: Breast Surgery, Joint Replacement, Tonsillectomy Additional Past Surgical History / Comment(s): Partial RT Hip Replacement 2002. Left breast biopsy and lumpectomy 2018. Cataract surgery. COLONOSCOPY 2011. Uterine myomectomy. Past Anesthesia/Blood Transfusion Reactions: No Reported Reaction Past Psychological History: Anxiety, Depression Smoking Status: Never smoker Past Alcohol Use History: Occasional Past Drug Use History: None Reported - Past Family History Sister(s) Family Medical History: Cancer Additional Family Medical History / Comment(s): BREAST CA. Father Family Medical History: Cancer Additional Family Medical History / Comment(s): Throat cancer. Mother Additional Family Medical History / Comment(s): Heart valve replacement. 2 maternal aunts had breast cancer. General Exam Limitations: no limitations General appearance: alert, in no apparent distress Head exam: Present: atraumatic, normocephalic Eye exam: Present: normal appearance, PERRL ENT exam: Present: normal exam Neck exam: Present: normal inspection. Absent: tenderness, meningismus Respiratory exam: Present: normal lung sounds bilaterally. Absent: respiratory distress, wheezes Cardiovascular Exam: Present: regular rate, normal rhythm GI/Abdominal exam: Present: soft. Absent: distended, tenderness, guarding Extremities exam: Present: normal inspection, normal capillary refill Neurological exam: Present: alert, oriented X3, CN II-XII intact, other (No ataxia, normal finger to nose bilaterally). Absent: motor sensory deficit Psychiatric exam: Present: normal affect, normal mood Skin exam: Present: warm, dry, intact Course Vital Signs 03/02/22 03/02/22 13:38 13:43 Temperature 99.0 F Pulse Rate 75 Respiratory 18 Rate Blood Pressure 161/97 O2 Sat by Pulse 100 Oximetry Medical Decision Making - Medical Decision Making 76-year-old female with present with hypertension and lightheadedness. Patient well-appearing without focal neurological findings. She has no limb ataxia. She has no nystagmus or cerebellar signs. She has been on a course of steroids which may be elevating her blood pressure. She was sent in for CT brain. Pain began was negative for acute findings per she has a normal CBC, normal CMP, n egative urinalysis, negative troponin. I did reevaluate the patient blood pressure is down trending without treatment in the emergency department. We discussed strict return parameters and ultimately the patient will monitor her blood pressure at home 3 times daily and follow with the primary care physician. She will return with headache, chest pain, abdominal pain, focal numbness or weakness. - Lab Data Result diagrams: 03/02/22 14:21 03/02/22 14:21 Lab Results 03/02/22 03/02/22 03/02/22 Range/Units 14:21 14:21 14:21 WBC 5.7 (3.8-10.6) k/uL RBC 4.78 (3.80-5.40) m/uL Hgb 14.7 (11.4-16.0) gm/dL Hct 44.9 (34.0-46.0) % MCV 93.9 (80.0-100.0) fL MCH 30.7 (25.0-35.0) pg MCHC 32.7 (31.0-37.0) g/dL RDW 12.9 (11.5-15.5) % Plt Count 221 (150-450) k/uL MPV 6.6 Neutrophils % 68 % Lymphocytes % 22 % Monocytes % 7 % Eosinophils % 2 % Basophils % 0 % Neutrophils # 3.8 (1.3-7.7) k/uL Lymphocytes # 1.2 (1.0-4.8) k/uL Monocytes # 0.4 (0-1.0) k/uL Eosinophils # 0.1 (0-0.7) k/uL Basophils # 0.0 (0-0.2) k/uL PT 9.8 (9.0-12.0) sec INR 0.9 (<1.2) Sodium 139 (137-145) mmol/L Potassium 3.8 (3.5-5.1) mmol/L Chloride 108 H (98-107) mmol/L Carbon Dioxide 26 (22-30) mmol/L Anion Gap 5 mmol/L BUN 12 (7-17) mg/dL Creatinine 0.59 (0.52-1.04) mg/dL Est GFR (CKD-EPI)AfAm >90 (>60 ml/min/1.73 sqM) Est GFR (CKD-EPI)NonAf 88 (>60 ml/min/1.73 sqM) Glucose 99 (74-99) mg/dL Calcium 9.0 (8.4-10.2) mg/dL Magnesium 2.1 (1.6-2.3) mg/dL Total Bilirubin 0.4 (0.2-1.3) mg/dL AST 22 (14-36) U/L ALT 8 (4-34) U/L Alkaline Phosphatase 52 (38-126) U/L Troponin I (0.000-0.034) ng/mL Total Protein 6.5 (6.3-8.2) g/dL Albumin 4.4 (3.5-5.0) g/dL 03/02/22 Range/Units 14:21 WBC (3.8-10.6) k/uL RBC (3.80-5.40) m/uL Hgb (11.4-16.0) gm/dL Hct (34.0-46.0) % MCV (80.0-100.0) fL MCH (25.0-35.0) pg MCHC (31.0-37.0) g/dL RDW (11.5-15.5) % Plt Count (150-450) k/uL MPV Neutrophils % % Lymphocytes % % Monocytes % % Eosinophils % % Basophils % % Neutrophils # (1.3-7.7) k/uL Lymphocytes # (1.0-4.8) k/uL Monocytes # (0-1.0) k/uL Eosinophils # (0-0.7) k/uL Basophils # (0-0.2) k/uL PT (9.0-12.0) sec INR (<1.2) Sodium (137-145) mmol/L Potassium (3.5-5.1) mmol/L Chloride (98-107) mmol/L Carbon Dioxide (22-30) mmol/L Anion Gap mmol/L BUN (7-17) mg/dL Creatinine (0.52-1.04) mg/dL Est GFR (CKD-EPI)AfAm (>60 ml/min/1.73 sqM) Est GFR (CKD-EPI)NonAf (>60 ml/min/1.73 sqM) Glucose (74-99) mg/dL Calcium (8.4-10.2) mg/dL Magnesium (1.6-2.3) mg/dL Total Bilirubin (0.2-1.3) mg/dL AST (14-36) U/L ALT (4-34) U/L Alkaline Phosphatase (38-126) U/L Troponin I <0.012 (0.000-0.034) ng/mL Total Protein (6.3-8.2) g/dL Albumin (3.5-5.0) g/dL Disposition Clinical Impression: Hypertension Disposition: HOME SELF-CARE Condition: Good Instructions (If sedation given, give patient instructions): Dizziness (ED), Hypertension (ED) Is patient prescribed a controlled substance at d/c from ED?: No Referrals: Darwin Mcdonald MD [Primary Care Provider] - 1-2 days Time of Disposition: 16:16
[2022-03-02 14:30] LABS: Basophils % (A) 0 %; Eosinophils # (A) 0.1 k/uL (0-0.7); Eosinophils % (A) 2 %; HCT 44.9 % (34.0-46.0); HGB 14.7 gm/dL (11.4-16.0); Lymphocytes # (A) 1.2 k/uL (1.0-4.8); Lymphocytes % (A) 22 %; MCH 30.7 pg (25.0-35.0); MCHC 32.7 g/dL (31.0-37.0); MCV 93.9 fL (80.0-100.0); Mean Platelet Volume 6.6; Monocytes # (A) 0.4 k/uL (0-1.0); Monocytes % (A) 7 %; Neutrophils # (A) 3.8 k/uL (1.3-7.7); Neutrophils % (A) 68 %; Platelet Count 221 k/uL (150-450); RBC 4.78 m/uL (3.80-5.40); RDW 12.9 % (11.5-15.5); WBC 5.7 k/uL (3.8-10.6)
[2022-03-02 14:39] LABS: ALT 8 U/L (4-34); AST 22 U/L (14-36); African American GFR (CKD) >90 (>60 ml/min/1.73 sqM); Albumin 4.4 g/dL (3.5-5.0); Alkaline Phosphatase 52 U/L (38-126); Anion Gap 5 mmol/L; Blood Urea Nitrogen 12 mg/dL (7-17); Carbon Dioxide 26 mmol/L (22-30); Chloride 108 mmol/L (98-107); Glucose 99 mg/dL (74-99); INR 0.9 (<1.2); Magnesium 2.1 mg/dL (1.6-2.3); Non-African American GFR(CKD) 88 (>60 ml/min/1.73 sqM); Potassium 3.8 mmol/L (3.5-5.1); Prothrombin Time 9.8 sec (9.0-12.0); Sodium 139 mmol/L (137-145); Total Bilirubin 0.4 mg/dL (0.2-1.3); Total Protein 6.5 g/dL (6.3-8.2)
[2022-03-02 16:11] LABS: Appearance,Urine Clear (Clear); Bilirubin,Urine Negative (Negative); Blood,Urine Negative (Negative); Color,Urine Colorless; Glucose,Urine (UA) Negative (Negative); Ketones,Urine Negative (Negative); Leukocyte Esterase,Urine Negative (Negative); Nitrite,Urine Negative (Negative); PH, Urine 6.5 (5.0-8.0); Protein,Urine Negative (Negative); Specific Gravity,Urine 1.003 (1.001-1.035); Urobilinogen,Urine <2.0 mg/dL (<2.0)
[2022-03-02 16:29] VITALS: BP 149/82; PULSE 82; TEMP 98.4
== END 2022-03-02 16:34 | disposition home or self-care (01) ==
LOC: EC 13:27
DX: I10 Essential (primary) hypertension (principal); F32.A Depression, unspecified; F41.9 Anxiety disorder, unspecified; Z79.01 Long term (current) use of anticoagulants; Z79.899 Other long term (current) drug therapy
CPT/HCPCS: 36415; 70450; 80053; 81003; 83735; 84484; 85025; 85610; 93005; 99284

== ENCOUNTER → 2022-06-29 | Outpatient (CLI) | payer MEDICARE ==
--- NOTE | 2022-06-30 20:28 | MM ---
Reason for Exam: Screening (asymptomatic). Last screening mammogram was performed 12 month(s) ago. Patient History: Menarche at age 10. First Full-Term at age 17. Postmenopausal. Patient has history of breast feeding. Breast cancer, age 72. Estrogen for 3 years from age 54 until age 56. 06/08/2018, Lumpectomy on the Left side. 06/08/2018, Malignant Core Biopsy on the left side. 05/08/2018, Malignant Core Biopsy on the left side. 05/08/2018, Malignant Core Biopsy on the left side. 12/13/2002, Benign Excisional Biopsy on the left side. 12/13/2002, Benign Excisional Biopsy on the left side. 12/06/2002, Stereotactic Core Biopsy. 2017, Radiation Therapy on the left side. Maternal aunt had breast cancer, age 67. Maternal aunt had breast cancer, age 67. Sister had breast cancer, age 62. Prior Study Comparison: 10/19/2015 Right Diagnostic Mammogram, [facility]. 04/17/2018 Bilateral Screening Mammogram, [facility]. 05/02/2018 Left Diagnostic Mammogram, [facility]. 05/08/2018 Left Diagnostic Mammogram, [facility]. 04/22/2019 Bilateral Diagnostic Mammogram, [facility]. 06/08/2020 Bilateral Diagnostic Mammogram, [facility]. 06/25/2021 Bilateral Diagnostic Mammogram, [facility]. Tissue Density: The breast tissue is heterogeneously dense. This may lower the sensitivity of mammography. Findings: Analyzed By CAD. Postsurgical and posttreatment changes left breast. Microclip anterior left breast from prior biopsy. Boil cyst calcification on the right is unchanged and benign. Faint vascular calcifications on the left. No significant change from prior exams. Overall Assessment: Benign, BI-RAD 2 Management: Screening Mammogram of both breasts in 1 year. 1. Patient should continue monthly self breast exams. 2. A clinical breast exam by your physician is recommended on an annual basis. 3. This exam should not preclude additional follow-up of suspicious palpable abnormalities. Electronically signed and approved by: Malachi Sahni M.D. Radiologist
--- NOTE | 2022-07-01 13:30 | BD ---
EXAMINATION TYPE: Axial Bone Density DATE OF EXAM: 06/29/2022 COMPARISON: 04.17.2018 CLINICAL HISTORY: 76 years year old Female. ICD-10 CODE: Z79.890 HORMONE REPLACEMENT THERAPY Height: 63IN Weight: 136 FRAX RISK QUESTIONS: History of Fracture in Adulthood: YES Secondary Osteoporosis: RISK FACTORS HISTORY OF: Hip Fracture (Right/Left): YES When: 2002,2020 History of Wrist Fracture: YES When: 2002 Surgery to Hip(right/left)/ HEYDI HIP SURGERY 2021 Wrist (right): YES Postmenopausal woman: YES Take estrogen and/or progesterone medications: NONE CURRENT How lon-56 Lost more than 2 inches in height since high school: YES MEDICATIONS: Osteoporosis Medications: Which medication: PROLIA SHOT How Lon Additional Medications: ANASTROZOLE Additional History: BREAST CANCER AT 72, HEYDI HIP REPLACEMENT EXAM MEASUREMENTS: Bone mineral densitometry was performed using the [employer]. Bone mineral density as measured about the Lumbar spine is: ----- L1-L4(G/cm2): 1.478 T Score Values are as follows: ----- L1: 1.7 ----- L2: 2.9 ----- L3: 2.5 ----- L4: 2.6 ----- L1-L4: 2.5 Bone mineral density has: Increased 2.4% since study of: 04.17.2018 Bone mineral density about the R Wrist (g/cm2): 0.474 T Score values are as follows: -----Dist. R+U: -2.8 -----Prox. R+U: -3.2 -----Radius total: -3.1 IMPRESSION: Osteoporosis (T Score less than -2.5). There is increased fracture risk and therapy is usually indicated based on age. Re-Screen 1-2 years. NOTE: T-SCORE=SD OF THE YOUNG ADULT MEAN.
== END | disposition home or self-care (01) ==
LOC: RADMAMWWP 10:33
PROVIDERS: ATTEND Internal Medicine Hematology & Oncology
DX: Z12.31 Encounter for screening mammogram for malignant neoplasm of breast (principal); M81.0 Age-related osteoporosis without current pathological fracture; Z85.3 Personal history of malignant neoplasm of breast
CPT/HCPCS: 77063; 77067; 77080

== ENCOUNTER → 2023-08-10 | Outpatient (CLI) | payer MEDICARE ==
--- NOTE | 2023-08-11 20:45 | MM ---
Reason for Exam: Screening (asymptomatic). Last mammogram was performed 1 year(s) and 2 month(s) ago. Patient History: Menarche at age 10. First Full-Term at age 17. Postmenopausal. Patient has history of breast feeding. Breast cancer, left, age 72. Estrogen for 3 years from age 54 until age 56. 06/08/2018, Lumpectomy on the Left side. 06/08/2018, Malignant Core Biopsy on the left side. 05/08/2018, Malignant Core Biopsy on the left side. 05/08/2018, Malignant Core Biopsy on the left side. 12/13/2002, Benign Excisional Biopsy on the left side. 12/13/2002, Benign Excisional Biopsy on the left side. 12/06/2002, Stereotactic Core Biopsy. 2017, Radiation Therapy on the left side. Maternal aunt had breast cancer, age 67. Maternal aunt had breast cancer, age 67. Sister had breast cancer, age 62. Prior Study Comparison: 06/08/2020 Bilateral Diagnostic Mammogram, [facility]. 06/25/2021 Bilateral Diagnostic Mammogram, [facility]. 06/29/2022 Bilateral MG 3D screening mammo w/cad, [facility]. Tissue Density: The breast tissue is heterogeneously dense. This may lower the sensitivity of mammography. Findings: Analyzed By CAD. Redemonstrated postsurgical change on the left. Additional microclip left breast from prior biopsy. There is no suspicious group of microcalcifications or new suspicious mass in either breast. Overall Assessment: Benign, BI-RAD 2 Management: Screening Mammogram of both breasts in 1 year. . Patient should continue monthly self-breast exams. A clinical breast exam by your physician is recommended on an annual basis. This exam should not preclude additional follow-up of suspicious palpable abnormalities. Electronically signed and approved by: Malachi Sahni M.D. Radiologist
== END | disposition home or self-care (01) ==
LOC: RADMAMWWP 13:21
PROVIDERS: ATTEND Internal Medicine Hematology & Oncology
DX: Z12.31 Encounter for screening mammogram for malignant neoplasm of breast (principal); Z78.0 Asymptomatic menopausal state; Z80.3 Family history of malignant neoplasm of breast; Z85.3 Personal history of malignant neoplasm of breast
CPT/HCPCS: 77063; 77067

== ENCOUNTER 2024-03-20 18:49 | Emergency (ER) | payer MEDICARE ==
[2024-03-20 19:25] VITALS: RESP 16
--- NOTE | 2024-03-20 19:26 | ED ---
Fall HPI - General Chief Complaint: Fall Stated Complaint: Fall Time Seen by Provider: 03/20/24 19:25 Source: patient Mode of arrival: EMS - History of Present Illness Initial Comments: 78-year-old female presenting with chief complaint of fall. Patient had a fall from standing in a grocery store parking lot today. She did hit her head. Unsure if she had any brief loss of consciousness. No blood thinners. No other injuries or complaints. No chest pain, difficulty breathing, abdominal pain, limb pain, dizziness, headache, neck pain, vision or hearing changes, numbness, tingling, weakness. Small laceration to the right roman catholic - Related Data Home Medications Medication Instructions Recorded Confirmed ALPRAZolam [Xanax] 0.125 mg PO DAILY PRN 05/04/18 07/06/21 Multivit-Min/Iron/Folic/Lutein 1 each PO HS 05/04/18 07/06/21 [Centrum Silver Women Tablet] Letrozole [Femara] 2.5 mg PO HS 03/05/19 07/06/21 Geovany/D3/Mag11/Zinc/Talent Acquisition Assistant/Nito/Bor 1 tab PO DAILY 07/06/21 07/06/21 [Caltrate 600+D Plus Tablet] Previous Rx's Medication Instructions Recorded Apixaban [Eliquis] 2.5 mg PO BID #60 tab 07/10/21 Docusate [Colace] 100 mg PO DAILY #30 cap 07/10/21 HYDROcodone/APAP 7.5-325MG [[place] 1 each PO Q6HR PRN #28 tab 07/10/21 7.5] Allergies Allergy/AdvReac Type Severity Reaction Status Date / Time No Known Allergies Allergy Verified 03/20/24 19:25 Review of Systems ROS Statement: Those systems with pertinent positive or pertinent negative responses have been documented in the HPI. ROS Other: All systems not noted in ROS Statement are negative. Past Medical History Past Medical History: Cancer Additional Past Medical History / Comment(s): LT BREAST CA status post lumpectomy and radiation treatment in 2018. 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 History of Any Multi-Drug Resistant Organisms: None Reported Past Surgical History: Breast Surgery, Joint Replacement, Tonsillectomy Additional Past Surgical History / Comment(s): Partial RT Hip Replacement 2002. Left breast biopsy and lumpectomy 2018. Cataract surgery. COLONOSCOPY 2012. Uterine myomectomy. Past Anesthesia/Blood Transfusion Reactions: No Reported Reaction Past Psychological History: Anxiety, Depression Smoking Status: Never smoker Past Alcohol Use History: Occasional Past Drug Use History: None Reported - Past Family History Sister(s) Family Medical History: Cancer Additional Family Medical History / Comment(s): BREAST CA. Father Family Medical History: Cancer Additional Family Medical History / Comment(s): Throat cancer. Mother Additional Family Medical History / Comment(s): Heart valve replacement. 2 maternal aunts had breast cancer. General Exam - General Exam Comments Initial Comments: Visual Physical Exam Vital signs reviewed General: Well-appearing, nontoxic, no acute distress. Head: Normocephalic, atraumatic Eyes: PERRLA, EOMI ENT: Airway patent Chest: Nonlabored breathing Skin: scrapes and abrasions, normal skin tone Neuro: Alert and oriented 3 Musculoskeletal: No gross abnormalities Limitations: no limitations General appearance: alert, in no apparent distress Head exam: Present: atraumatic, normocephalic Eye exam: Present: normal appearance, EOMI Neck exam: Present: normal inspection Respiratory exam: Present: normal lung sounds bilaterally. Absent: respiratory distress, wheezes, rales, rhonchi, stridor Cardiovascular Exam: Present: regular rate, normal rhythm, normal heart sounds. Absent: systolic murmur, diastolic murmur, rubs, gallop, clicks Extremities exam: Present: normal inspection, full ROM Neurological exam: Present: alert, oriented X3 Expanded Patient oriented to: Present: person, place, time Speech: Present: fluid speech Eye Response: (4) open spontaneously Motor Response: (6) obeys commands Verbal Response: (5) oriented Brant Total: 15 Psychiatric exam: Present: normal affect, normal mood Skin exam: Present: other (Small laceration to the right roman catholic) Course Vital Signs 03/20/24 03/20/24 19:18 21:14 Temperature 98.1 F 98.2 F Pulse Rate 83 72 Respiratory 16 16 Rate Blood Pressure 171/101 142/80 O2 Sat by Pulse 99 96 Oximetry Procedures - Laceration Laceration #1 Consent Obtained: verbal consent Indication: laceration Site: face Size (cm): 1 (Less than 1 cm) Description: linear Depth: simple, single layer Type of Sutures: other (exofin) Complications: pain Medical Decision Making - Medical Decision Making Was pt. sent in by a medical professional or institution (TUAN Pace, AUTOMOTIVE SALES SPECIALIST, urgent care, hospital, or skilled nursing...) When possible be specific @ -No Did you speak to anyone other than the patient for history (EMS, parent, family, police, friend...)? What history was obtained from this source @ -No Did you review nursing and triage notes (agree or disagree)? Why? @ -I reviewed and agree with nursing and triage notes Were old charts reviewed (outside hosp., previous admission, EMS record, old EKG, old radiological studies, urgent care reports/EKG's, skilled nursing records)? Report findings @ -No old charts were reviewed Differential Diagnosis (chest pain, altered mental status, abdominal pain women, abdominal pain men, vaginal bleeding, weakness, fever, dyspnea, syncope, headache, dizziness, GI bleed, back pain, seizure, CVA, palpatations, mental health, musculoskeletal)? @ -Differential includes uncomplicated head injury, concussion, fracture, hemorrhage, this is not an all-inclusive list EKG interpreted by me (3pts min.). @ -As above X-rays interpreted by me (1pt min.). @ -None done CT interpreted by me (1pt min.). @ -CT shows no acute intracranial process. Nonspecific white matter changes, likely secondary to chronic small vessel ischemic disease. No evidence of cervical spine fracture. Mild multilevel degenerative disc disease. Heterogenous enhancing left thyroid nodule, recommend nonemergent thyroid ultrasound for further evaluation U/S interpreted by me (1pt. min.). @ -None done What testing was considered but not performed or refused? (CT, X-rays, U/S, labs)? Why? @ -None What meds were considered but not given or refused? Why? @ -None Did you discuss the management of the patient with other professionals (professionals i.e. TUAN Pace, AUTOMOTIVE SALES SPECIALIST, lab, RT, psych nurse, child protective services social worker, type photography supervisor, teacher, life science technical officer, case packer)? Give summary @ -No Was smoking cessation discussed for >3mins.? @ -No Was critical care preformed (if so, how long)? @ -No Were there social determinants of health that impacted care today? How? (Homelessness, low income, unemployed, alcoholism, drug addiction, transportation, low edu. Level, literacy, decrease access to med. care, long-term, rehab)? @ -No Was there de-escalation of care discussed even if they declined (Discuss DNR or withdrawal of care, Hospice)? DNR status @ -No What co-morbidities impacted this encounter? (DM, HTN, Smoking, COPD, CAD, Cancer, CVA, ARF, Chemo, Hep., AIDS, mental health diagnosis, sleep apnea, morbid obesity)? @ -None Was patient admitted / discharged? Hospital course, mention meds given and route, prescriptions, significant lab abnormalities, going to OR and other p ertinent info. @ -78-year-old female present with chief complaint of fall. She fell from standing in a parking lot. Admits to head injury, she is unsure if she had any loss of consciousness. No blood thinners. Small laceration to the right roman catholic. Placed in c-collar by EMS. CT shows no acute intracranial process and no cervical spine fracture. There is a thyroid nodule noted which I made the patient aware of. Laceration is closed using Exofin. Tetanus shot updated. Discharged follow-up with PCP. Report back to ER with any new or worsening symptoms. Discussed return parameters and answered all questions. Patient conveyed verbal understanding and agreed to the plan. I discussed this case in detail with my attending Dr. Eugene Undiagnosed new problem with uncertain prognosis? @ -No Drug Therapy requiring intensive monitoring for toxicity (Heparin, Nitro, Insulin, Cardizem)? @ -No Were any procedures done? @ -No Diagnosis/symptom? @ -Fall, facial laceration, head injury Acute, or Chronic, or Acute on Chronic? @Acute Uncomplicated (without systemic symptoms) or Complicated (systemic symptoms)? @ -Uncomplicated Side effects of treatment? @ -No Exacerbation, Progression, or Severe Exacerbation? @ -No Poses a threat to life or bodily function? How? (Chest pain, USA, NV, pneumonia, PE, COPD, DKA, ARF, appy, cholecystitis, CVA, Diverticulitis, Homicidal, Suicidal, threat to staff... and all critical care pts) @ -Low likelihood at this time Disposition Clinical Impression: Facial laceration, Head injury Disposition: HOME SELF-CARE Condition: Good Instructions (If sedation given, give patient instructions): Fall Prevention for Older Adults (ED), Head Injury (ED), Facial Laceration (ED) Additional Instructions: Follow up with PCP, regarding today's injury and thyroid nodule. Report back to ER with any new or worsening symptoms. Is patient prescribed a controlled substance at d/c from ED?: No Referrals: Yobany Ceron MD [Primary Care Provider] - 1-2 days Time of Disposition: 21:11
--- NOTE | 2024-03-20 20:07 | CT ---
EXAMINATION TYPE: CT brain cspine wo con CT DLP: 1175 mGycm, Automated exposure control for dose reduction was used. DATE OF EXAM: 03/20/2024 7:56 PM COMPARISON: None. CLINICAL INDICATION:Female, 78 years old with history of fall; pain after fall today TECHNIQUE: Brain: Multiple axial CT images of the brain were obtained without IV contrast. Cspine: Axial CT images from the skull base to the inferior aspect of T2 we obtained without intraven ous contrast. Coronal and sagittal reformatted images were also reviewed. FINDINGS: Brain: Extra-axial spaces: No abnormal extra-axial fluid collections. Ventricular system: Within normal limits Cerebral parenchyma: No acute intraparenchymal hemorrhage or mass effect. The sutton-white junction is well differentiated. Scattered hypoattenuating areas are seen within the white matter. Cerebellum: Unremarkable. Mass effect: No evidence of midline shift. Intracranial vasculature: Atherosclerotic calcifications of the intracranial vessels. Soft tissues: Normal. Calvarium/osseous structures: No depressed skull fracture. Paranasal sinuses and mastoid air cells: Clear. Visualized orbits: Bilateral aphakia Cervical spine: Fracture: None. Osseous structures: Multilevel degenerative disc disease changes with endplate spurring and disc oste ophyte complex's. Vertebral alignment: Within normal limits. Spinal canal/Neural Foramina: No evidence of significant spinal canal narrowing. No evidence for sign ificant neural foraminal stenosis. Neck soft tissues: Prevertebral soft tissues are within normal limits. Other: The airway is patent. The lung apices are clear. Heterogenous left thyroid nodule measuring 2. 2 cm. IMPRESSION: CT brain: 1. No acute intracranial process. 2. Nonspecific white matter changes, likely secondary to chronic small vessel ischemic disease. CT cervical spine 1. No evidence of cervical spine fracture. 2. Mild multilevel degenerative disc disease. 3. Heterogenous enhancing left thyroid nodule, recommend nonemergent thyroid ultrasound for further e valuation.
[2024-03-20] MEDS: TOPICAL SKIN ADHESIVE 1 EACH AMP TOPICAL ONE (21:05)
[2024-03-20] MEDS: DIPH,PERTUS(ACELL)TETVAC-LF 0.5 ML VIAL IM ONE (21:06)
[2024-03-20 21:15] VITALS: BP 142/80; PULSE 72; TEMP 98.2
== END 2024-03-20 21:20 | disposition home or self-care (01) ==
LOC: EC 18:49
DX: S01.81XA Laceration without foreign body of other part of head, initial encounter (principal); Z23 Encounter for immunization; W18.30XA Fall on same level, unspecified, initial encounter
CPT/HCPCS: 12011; 70450; 72125; 90471; 90715; 99283

== ENCOUNTER → 2024-04-18 | Outpatient (CLI) | payer MEDICARE ==
--- NOTE | 2024-04-18 12:17 | US ---
EXAMINATION TYPE: US thyroid st tissue head/neck DATE OF EXAM: 04/18/2024 COMPARISON: CT: 03/20/24 CLINICAL INDICATION: Female, 78 years old with history of E04.1 NONTOXIC SINGLE THYROID NODULE; thyro id nodule seen on CT GLAND SIZE: Right Lobe: 5.3 x 1.8 x 2.0 cm Overall Parenchyma: homogeneous Left Lobe: 5.3 x 2.1 x 2.0 cm Overall Parenchyma: homogeneous Isthmus Thickness: 0.4 cm NODULES RIGHT: # of nodules measured on right: 0 LEFT: # of nodules measured on left: 1 1. 3.4 X 1.8 x 1.8 cm, lower lateral, solid or almost completely solid, hypoechoic nodule, which is wider than tall, with lobulated or irregular margins, without echogenic foci. ISTHMUS: # of nodules measured in the isthmus: 0 Bilateral neck scanned, no evidence of lymphadenopathy. IMPRESSION: Moderately suspicious nodule left lobe thyroid. Fine-needle aspiration recommended if not previously performed. 2017 ACR TI-RADS LEVEL: TR-RADS 4 - Moderately Suspicious: Follow if > 1 cm, FNA if > 1.5 cm *Highest TI-RADS level nodule reported
== END | disposition home or self-care (01) ==
LOC: RADUSWWP 11:07
PROVIDERS: ATTEND Family Medicine
DX: E04.1 Nontoxic single thyroid nodule (principal); R22.0 Localized swelling, mass and lump, head
CPT/HCPCS: 76536

== ENCOUNTER 2024-06-02 08:15 | Emergency (ER) | payer MEDICARE ==
[2024-06-02 08:34] VITALS: BP 121/67; PULSE 72; RESP 16; TEMP 97.9
--- NOTE | 2024-06-02 08:46 | ED ---
Skin/Abscess/FB HPI - General Chief complaint: Skin/Abscess/Foreign Body Stated complaint: Rash Time Seen by Provider: 06/02/24 08:43 Source: patient, RN notes reviewed Mode of arrival: ambulatory Limitations: no limitations - History of Present Illness Initial comments: 78-year-old female presented to ER with a chief complaint of a rash. Patient was working in the yard yesterday and believes she was possibly exposed to poison ebenezer. Patient reports an erythematous pruritic rash to bilateral upper extremities. Patient placed in aspirin cream on it yesterday without relief. Patient denies any other injuries or complaints. - Related Data Home Medications Medication Instructions Recorded Confirmed ALPRAZolam [Xanax] 0.125 mg PO DAILY PRN 05/04/18 07/06/21 Multivit-Min/Iron/Folic/Lutein 1 each PO HS 05/04/18 07/06/21 [Centrum Silver Women Tablet] Letrozole [Femara] 2.5 mg PO HS 03/05/19 07/06/21 Geovany/D3/Mag11/Zinc/Retail Attendant/Nito/Bor 1 tab PO DAILY 07/06/21 07/06/21 [Caltrate 600+D Plus Tablet] Previous Rx's Medication Instructions Recorded Apixaban [Eliquis] 2.5 mg PO BID #60 tab 07/10/21 Docusate [Colace] 100 mg PO DAILY #30 cap 07/10/21 HYDROcodone/APAP 7.5-325MG [[place] 1 each PO Q6HR PRN #28 tab 07/10/21 7.5] Hydrocortisone Cream 1 applic TOPICAL TID #28 gm 06/02/24 [Hydrocortisone 1% Cream] Allergies Allergy/AdvReac Type Severity Reaction Status Date / Time No Known Allergies Allergy Verified 06/02/24 08:34 Review of Systems ROS Statement: Those systems with pertinent positive or pertinent negative responses have been documented in the HPI. ROS Other: All systems not noted in ROS Statement are negative. Past Medical History Past Medical History: Cancer Additional Past Medical History / Comment(s): LT BREAST CA status post lumpectomy and radiation treatment in 2018. 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 History of Any Multi-Drug Resistant Organisms: None Reported Past Surgical History: Breast Surgery, Joint Replacement, Tonsillectomy Additional Past Surgical History / Comment(s): Partial RT Hip Replacement 2002. Left breast biopsy and lumpectomy 2018. Cataract surgery. COLONOSCOPY 2012. Uterine myomectomy. Past Anesthesia/Blood Transfusion Reactions: No Reported Reaction Past Psychological History: Anxiety, Depression Smoking Status: Never smoker Past Alcohol Use History: Occasional Past Drug Use History: None Reported - Past Family History Sister(s) Family Medical History: Cancer Additional Family Medical History / Comment(s): BREAST CA. Father Family Medical History: Cancer Additional Family Medical History / Comment(s): Throat cancer. Mother Additional Family Medical History / Comment(s): Heart valve replacement. 2 maternal aunts had breast cancer. General Exam Limitations: no limitations General appearance: alert, in no apparent distress Respiratory exam: Present: normal lung sounds bilaterally. Absent: respiratory distress, wheezes, rales, rhonchi, stridor Cardiovascular Exam: Present: regular rate, normal rhythm, normal heart sounds. Absent: systolic murmur, diastolic murmur, rubs, gallop, clicks Extremities exam: Present: normal inspection, full ROM, normal capillary refill. Absent: tenderness, pedal edema, joint swelling, calf tenderness Neurological exam: Present: alert, oriented X3, CN II-XII intact Skin exam: Present: warm, dry, intact, normal color, rash (Erythematous macular few papules to bilateral forearms.) Course Vital Signs 06/02/24 08:31 Temperature 97.9 F Pulse Rate 72 Respiratory 16 Rate Blood Pressure 121/67 O2 Sat by Pulse 94 L Oximetry Medical Decision Making - Medical Decision Making Was pt. sent in by a medical professional or institution (, PA, LOG HAUL CHAIN FEEDER, urgent care, hospital, or jail...) When possible be specific @ -No Did you speak to anyone other than the patient for history (EMS, parent, family, police, friend...)? What history was obtained from this source @ -No Did you review nursing and triage notes (agree or disagree)? Why? @ -I reviewed and agree with nursing and triage notes Were old charts reviewed (outside hosp., previous admission, EMS record, old EKG, old radiological studies, urgent care reports/EKG's, jail records)? Report findings @ -No old charts were reviewed Differential Diagnosis (chest pain, altered mental status, abdominal pain women, abdominal pain men, vaginal bleeding, weakness, fever, dyspnea, syncope, headache, dizziness, GI bleed, back pain, seizure, CVA, palpatations, mental health, musculoskeletal)? @ -Contact dermatitis, scabies, viral exanthem This list is not meant to be all inclusive EKG interpreted by me (3pts min.). @ -None X-rays interpreted by me (1pt min.). @ -None done CT interpreted by me (1pt min.). @ -None done U/S interpreted by me (1pt. min.). @ -None done What testing was considered but not performed or refused? (CT, X-rays, U/S, labs)? Why? @ -None What meds were considered but not given or refused? Why? @ -None Did you discuss the management of the patient with other professionals (professionals i.e. , PA, LOG HAUL CHAIN FEEDER, lab, RT, psych nurse, psychosocial rehabilitation counselor, blocker and cutter contact lens, teacher, training and development officer, correctional case records supervisor)? Give summary @ -No Was smoking cessation discussed for >3mins.? @ -No Was critical care preformed (if so, how long)? @ -No Were there social determinants of health that impacted care today? How? (Homelessness, low income, unemployed, alcoholism, drug addiction, transportatio n, low edu. Level, literacy, decrease access to med. care, halfway, rehab)? @ -No Was there de-escalation of care discussed even if they declined (Discuss DNR or withdrawal of care, Hospice)? DNR status @ -No What co-morbidities impacted this encounter? (DM, HTN, Smoking, COPD, CAD, Cancer, CVA, ARF, Chemo, Hep., AIDS, mental health diagnosis, sleep apnea, morbid obesity)? @ -None Was patient admitted / discharged? Hospital course, mention meds given and route, prescriptions, significant lab abnormalities, going to OR and other pertinent info. @ -Discharged. 78-year-old female presented to ER with a chief complaint of a rash. History and physical exam completed. Vitals within normal limits. Patient in no sign of acute distress and nontoxic appearing. Rash concerning for contact dermatitis. Patient received p.o. prednisone prior to discharge and prescribed hydrocortisone cream. Advised close follow-up with PCP. Return parameters discussed. Patient discharged in stable condition. Patient verbally stressed understanding and agreed with care plan. Case discussed with ED attending, Dr. Gottlieb. Undiagnosed new problem with uncertain prognosis? @ -No Drug Therapy requiring intensive monitoring for toxicity (Heparin, Nitro, Insulin, Cardizem)? @ -No Were any procedures done? @ -No Diagnosis/symptom? @ -Contact dermatitis Acute, or Chronic, or Acute on Chronic? @ -Acute Uncomplicated (without systemic symptoms) or Complicated (systemic symptoms)? @ -Uncomplicated Side effects of treatment? @ -No Exacerbation, Progression, or Severe Exacerbation? @ -No Poses a threat to life or bodily function? How? (Chest pain, USA, [place], pneumonia, PE, COPD, DKA, ARF, appy, cholecystitis, CVA, Diverticulitis, Homicidal, Suicidal, threat to staff... and all critical care pts) @ -No Disposition Clinical Impression: Contact dermatitis Disposition: HOME SELF-CARE Condition: Stable Instructions (If sedation given, give patient instructions): Contact Dermatitis (ED) Additional Instructions: You may take OTC benadryl for symptoms control. Use hydrocortisone cream TID. Follow-up with pcp. Prescriptions: Hydrocortisone Cream [Hydrocortisone 1% Cream] 1 applic TOPICAL TID #28 gm Is patient prescribed a controlled substance at d/c from ED?: No Referrals: Yobany Ceron MD [Primary Care Provider] - 1-2 days Time of Disposition: 08:59
[2024-06-02] MEDS: predniSONE 50 MG TAB PO STA (09:11)
== END 2024-06-02 09:24 | disposition home or self-care (01) ==
LOC: EC 08:15
DX: L25.9 Unspecified contact dermatitis, unspecified cause (principal)
CPT/HCPCS: 99282

== ENCOUNTER 2024-08-22 07:46 | Day surgery (SDC) | payer MEDICARE ==
[2024-08-22] MEDS: ALPRAZolam 0.25 MG TAB PO PRN (08:25)
[2024-08-22 08:33] VITALS: TEMP 98
[2024-08-22 09:49] VITALS: BP 120/61; PULSE 74; RESP 16
--- NOTE | 2024-08-22 09:54 | US ---
EXAMINATION TYPE: US FNA first lesion DATE OF EXAM: 08/22/2024 9:36 AM COMPARISON: 04/18/2024 CLINICAL INDICATION:Female, 78 years old with history of E04.1 nodule; , ATTENDING: Dr. Charbel Rojo PROCEDURE: Informed consent was obtained. The risks and benefits of the procedure were discussed with the patien t. The site was marked. Timeout procedure was performed Ultrasound imaging demonstrates right inferior thyroid nodule The patient was prepped, draped in the usual sterile fashion, and locally anesthetized with 1% lidoca ine. Five fine needle aspiration were then performed with a 25 gauge needle. Samples were sent to [facility] pathology department for further analysis. Patient tolerated the procedure without incident and wa s sent home in stable condition. IMPRESSION: Successful ultrasound guided fine needle aspiration [facility] Jim [place]pa, , 08/22/2024 9:52 AM
== END 2024-08-22 09:53 | disposition home or self-care (01) ==
LOC: RADPROMAIN 07:46
PROVIDERS: ATTEND Student in an Organized Health Care Education/Training Program
DX: E04.1 Nontoxic single thyroid nodule (principal)
CPT/HCPCS: 10005; 88173; 88305

== ENCOUNTER → 2024-11-01 | Outpatient (CLI) | payer MEDICARE ==
--- NOTE | 2024-11-01 17:37 | MM ---
Reason for Exam: Screening (asymptomatic). Last mammogram was performed 1 year(s) and 2 month(s) ago. Patient History: Menarche at age 10. First Full-Term at age 17. Postmenopausal. Patient has history of breast feeding. Breast cancer, left, age 72. Previous chest radiation therapy at age 72. Estrogen for 3 years from age 54 until age 56. 06/08/2018, Lumpectomy on the Left side. 06/08/2018, Malignant Core Biopsy on the left side. 05/08/2018, Malignant Core Biopsy on the left side. 05/08/2018, Malignant Core Biopsy on the left side. 12/13/2002, Benign Excisional Biopsy on the left side. 12/13/2002, Benign Excisional Biopsy on the left side. 12/06/2002, Stereotactic Core Biopsy. 2018, Radiation Therapy on the left side. Maternal aunt had breast cancer, age 67. Maternal aunt had breast cancer, age 67. Sister had breast cancer, age 62. Prior Study Comparison: 06/25/2021 Bilateral Diagnostic Mammogram, [facility]. 06/29/2022 Bilateral MG 3D screening mammo w/cad, [facility]. 08/10/2023 Bilateral MG 3D screening mammo w/cad, [facility]. Tissue Density: The breasts are heterogeneously dense, which may obscure small masses. Findings: Analyzed By CAD. Postsurgical postsurgical changes left breast. Microclip anterior left breast from prior biopsy. Otherwise, no significant change from prior exams. Overall Assessment: Benign, BI-RAD 2 Management: Screening Mammogram of both breasts in 1 year. Patient should continue monthly self-breast exams. A clinical breast exam by your physician is recommended on an annual basis. This exam should not preclude additional follow-up of suspicious palpable abnormalities. [facility], , 11/01/2024 5:34 PM. Electronically signed and approved by: Malachi Sahni M.D. Radiologist
== END | disposition home or self-care (01) ==
LOC: RADMAMWWP 13:40
PROVIDERS: ATTEND Family Medicine
DX: Z12.31 Encounter for screening mammogram for malignant neoplasm of breast (principal); R92.333 Mammographic heterogeneous density, bilateral breasts; Z80.3 Family history of malignant neoplasm of breast; Z78.0 Asymptomatic menopausal state
CPT/HCPCS: 77063; 77067

== ENCOUNTER → 2025-01-17 | Outpatient (CLI) | payer MEDICARE ==
--- NOTE | 2025-01-18 03:11 | EEG ---
ELECTROENCEPHALOGRAM REPORT CLINICAL HISTORY: This is an 79-year-old woman with reported short-term memory loss and headache. The video EEG is obtained to evaluate for seizure epileptiform activity. RELEVANT MEDICATIONS: 1. Memantine. 2. Bupropion according to the television production technician report. EEG TYPE: This is a routine 21-channel EEG with video using the 10/20 electrode placement system. DATE OF RECORDING: At 8:36 a.m. and end of recording is 9:21 a.m. both on 01/17/2025. DESCRIPTION: Wakefulness and brief drowsiness are obtained. During awake state, the posterior dominant rhythm consists of [id number] voltage of 8.5 to 9 hertz activity that is well modulated and well sustained. There is no physiological stage 2 sleep architecture. There is mild diffuse myogenic artifact. There is no focal slowing. Interictal and ictal is none. ACTIVATION PROCEDURE: Photic stimulation did not evoke a posterior driving response. There is no abnormality during the photic stimulation. Hyperventilation is not performed. CLINICAL INTERPRETATION: This is a normal routine EEG. There is no focal slowing, epileptiform discharge, or seizure on the EEG. A normal routine EEG does not rule out underlying epilepsy. Clinical correlation is recommended. MMODL / IJN: [id number] /
== END ==
LOC: NEUROMAIN 08:03
PROVIDERS: ATTEND Family Medicine
DX: R51.9 Headache, unspecified (principal)
CPT/HCPCS: 95812